=== PATIENT | female | born 1995 | race Caucasian/White ===

== ENCOUNTER 2019-03-31 06:59 | Emergency (ER) | payer MEDICAID, SELFPAY ==
[2019-03-12 13:41] VITALS: BMI 32.8
[2019-03-31 07:00] VITALS: BP 124/65; PULSE 100; RESP 16; TEMP 36.8; O2SAT 97; BMI 38.7
--- NOTE | 2019-03-31 07:10 | ED.VISSUMM ---
- ER Visit Summary Date of Service: 03/31/19 Chief Complaint: Foot pain History of Present Illness: The patient is a 23 F who presents the emergency department for evaluation of a left foot pain. Patient states that about a week ago she stepped on something causing a laceration in between the toes of #4 and 5 on the left. She notes pain and swelling now. She is also . Physical Examination: Afebrile vital signs stable On the bilateral feet and the interspaces between the toes there is moist white exudate with erythematous skin/skin breakdown. The left fifth toe is swollen erythematous and warm. There is a black foreign body in the exudate between the fourth and fifth toe on the left. Test Results: Accu-Chek was obtained. It was normal at 91. Emergency Department Course and Treatment: The black foreign body was removed with a Q-tip. Patient has bilateral tinea pedis. We will prescribe clotrimazole. For the cellulitis of the toe we will also prescribe Keflex. I have asked that she follow-up with podiatry to ensure resolution. Impression: 1. Bilateral tinea pedis 2. Cellulitis of the fifth toe on the left 3. This note was generated with [employer] dictation software. It may contain incorrect words, spelling, and punctuation that were not noted in review of the chart prior to signing ED Disposition - Plan for ED Patient: Disposition: Home or Assisted Living Instructions: Cellulitis, Athlete'S Foot Prescriptions: Cephalexin [Keflex] 500 mg PO Q6 #28 cap Prescription Printed Clotrimazole [Lotrimin] 1 applicatio TOPICAL BID #60 g Prescription Printed Referrals: David Navarro DPM [STAFF PHYSICIAN] - As soon as possible
[2019-03-31 07:25] LABS: Bedside Glucose 91 mg/dL (70-110)
== END 2019-03-31 07:36 | disposition home or self-care (01) ==
LOC: ED 07:28
PROVIDERS: Emergency Provider Emergency Medicine
DX: O99.89 Other specified diseases and conditions complicating pregnancy, childbirth and the puerperium (principal); B35.3 Tinea pedis; L03.032 Cellulitis of left toe; Z3A.00 Weeks of gestation of pregnancy not specified
CPT/HCPCS: 82962; 99282

== ENCOUNTER 2019-04-05 15:33 | Emergency (ER) | payer MEDICAID, SELFPAY ==
[2019-03-31 18:22] VITALS: BMI 38.7
[2019-04-05 15:34] VITALS: BP 150/80; PULSE 111; RESP 16; TEMP 37.1; O2SAT 98; BMI 38.7
--- NOTE | 2019-04-05 15:45 | ED.DCSUM_ITS ---
History of Present Illness Chief Complaint: Nausea/Vomiting Informant: Patient Onset: Today Context: Onset - awoke w/ mild headache Timing: Continuous Quality: Similar Prior Headaches, Throbbing Location: left frontal/retroorbital Current Severity: Severe Maximum Severity: Severe - but not the worst ever Worsened by: light Relieved by: nothing; tried tylenol and zofran but not staying down Associated Symptoms: Nausea, Vomiting, Photophobia. Negative for: Numbness, Ti ngling, Blurred Vision, Visual Loss Injury: - - no injury/trauma/assault/fall Narrative: Patient with a history of migraines, she states she is 14 weeks and has been having morning sickness for which she is taking Zofran, today she awoke with a mild migraine and vomiting that she thought was the morning sickness but as she continued vomiting and her headache became worse gradually and now she cannot stop vomiting or keep any medication down. She states that headache is very similar to multiple prior migraines in the past and she has had no lapses in consciousness today, fevers, neck stiffness, peripheral neurologic symptoms, confusion. She denies any lower abdominal discomfort, vaginal bleeding or discharge or leakage, she has not been feeling the baby move yet. Prior similar symptoms: Yes - Past Medical History (1) Migraines Status: Chronic Past Medical History - Allergies and Home Meds Allergies/Adverse Reactions: Allergies No Known Allergies Allergy (Verified 04/05/19 15:35) Primary Care Physician: Care Physician,No Primary [Primary Care Provider] - Lives: Spouse/ Significant Other Smoking Status: Never smoker Drugs: None Review of Systems General: Reports: Malaise. Denies: Chills, Fever Eyes: Denies: Visual changes - bilaterally, Blurred Vision - bilaterally, Diplopia ENT: Denies: Bilateral ear pain, Rhinorrhea, Sore throat Cardiovascular: Denies: Chest pain, Palpitations Respiratory: Denies: Dyspnea, Cough, Dyspnea on exertion Gastrointestinal: Reports: Nausea, Vomiting. Denies: Abdominal pain Genitourinary: Reports: Frequency. Denies: Dysuria, Hematuria Musculoskeletal: Denies: Neck pain, Back pain, Swelling Skin: Denies: Rash, Wounds Neurological: Reports: Headache. Denies: Weakness, Parasthesia, Numbness Physical Exam Vital Signs/Narrative: Vital Signs Temp Pulse Resp BP Pulse Ox 04/05/19 15:34 98.7 F 111 H 16 150/80 H 98 Inital Vital Signs reviewed: Yes General: Well nourished, Well developed, Obese, - - nad, pleasant, conversive Eyes: Perrl - w/ mild photophobia, EOMI ENT: Moist mucous membranes, No rhinorrhea Neck: Supple, No Lymphadenopathy, Nontender, No Meningismus Cardiovascular: Regular rate, Regular rhythm, No murmurs Respiratory: No distress, CTA bilaterally, Chest nontender Abdomen: Soft, Nontender, Nondistended, Normal bowel sounds Skin: Normal color, No rash, No Trauma Neuro: Alert, Oriented x3, Cranial nerves II-XII grossly intact, Normal Strength, Normal Sensation, Normal DTR, Normal Gait Psychological: Normal affect, Normal Mood Diagnostic/Tx/Re-eval - Medical Decision Making Patient was treated with IV fluids and Reglan, her headache was mostly gone but she still felt a little nauseated. She was then given Zofran and feels much better. I think this sounds like a standard migraine for her, no imaging indicated at this time, routine follow-up or return if worse. She is comfortable with that plan. I gave her a prescription for a few Reglan because she needs them. ED Disposition - Plan for ED Patient: Disposition: Home or Assisted Living Diagnosis: Migraine headache, First trimester Instructions: ED, Migraine (Classical) Prescriptions: Metoclopramide [Reglan] 1 tab PO Q6H PRN #12 tab PRN Reason: Headache or nausea Prescription Printed Referrals: Doctor,Your [STAFF PHYSICIAN] - 3-5 Days if not improving Additional Instructions: May take the prescribed Reglan as needed for either nausea or headache. If you take it, do not combine with Phenergan as they are in the same class.
[2019-04-05] MEDS: Metoclopramide 10 MG/2 ML Vial IV (16:03)
[2019-04-05] MEDS: 0.9% Normal Saline 1,000 ML 999 ML IV (16:03)
[2019-04-05] MEDS: Ondansetron 4 MG/2 ML Vial IV (16:50)
[2019-04-05 17:34] VITALS: BP 106/77; PULSE 81; RESP 15; O2SAT 98
== END 2019-04-05 17:37 | disposition home or self-care (01) ==
PROVIDERS: Emergency Provider Emergency Medicine
DX: O99.352 Diseases of the nervous system complicating pregnancy, second trimester (principal); G43.909 Migraine, unspecified, not intractable, without status migrainosus; O21.0 Mild hyperemesis gravidarum; O99.212 Obesity complicating pregnancy, second trimester; E66.9 Obesity, unspecified; Z3A.14 14 weeks gestation of pregnancy
CPT/HCPCS: 96374; 96375; 99283; J7030; A4216; J2405

== ENCOUNTER 2019-06-14 01:22 | Emergency (ER) | payer MEDICAID, SELFPAY ==
[2019-06-14 01:23] VITALS: BP 125/77; PULSE 95; RESP 16; TEMP 36.8; O2SAT 100; BMI 39.4
[2019-06-14 01:35] VITALS: BP 121/69; PULSE 94; RESP 16; O2SAT 99
[2019-06-14] MEDS: Glucagon 1 MG/ML Syringe IV (03:17)
--- NOTE | 2019-06-14 03:27 | ED.DCSUM_ITS ---
- ER Visit Summary Date of Service: 06/14/19 Chief Complaint: Sore throat and difficulty swallowing History of Present Illness: The patient is a 23 F who presents with a sore throat and difficulty swallowing that began tonight. Patient states she had an episode of vomiting and felt like something is stuck in her throat. Patient states this is worse when she lays flat. Patient states she has had increased drooling when she lays flat. Patient denies any shortness of breath. Patient admits to a cough but states she is recently diagnosed with pneumonia and is currently on antibiotics for that. Patient also states she is approximately 25 weeks . Physical Examination: Vital signs are stable. Patient is afebrile. Patient is in no acute distress. Oral mucosa is pink and moist. Oropharynx is clear. There are no foreign bodies visualized in the oropharynx. Neck is supple. Trachea is midline. There is no JVD noted. Heart was regular rate and rhythm. Lungs are clear and equal bilaterally. Abdomen is soft. Bowel sounds are normal. There is no tenderness. Cranial nerves II through XII are intact. There are no focal motor or sensory deficits noted. Emergency Department Course and Treatment: Patient was given a dose of glucagon here. Patient had some emesis after this. Patient still felt like there is something in her throat. Patient was given a GI cocktail. Patient was able to swallow this and keep it down. I do not feel the patient needs emergency endoscopy. Patient was instructed to continue taking Tums or Mylanta as needed. Patient was referred to a primary care physician for follow-up care. Patient was also instructed to follow-up with her TISSUE COORDINATOR. Patient understood and was agreeable with the plan. All questions were answered. Disposition: Discharge home Impression: Dysphagia This note was generated with [employer] dictation software. It may contain incorrect words, spelling, and punctuation that were not noted in review of the chart prio r to signing ED Disposition - Plan for ED Patient: Disposition: Home or Assisted Living Diagnosis: Dysphagia Instructions: VOMITING (6y-Adult) Referrals: Care Physician,No Primary [Primary Care Provider] - Giovani Sandy MD [NON-STAFF] - 5-7 Days
[2019-06-14] MEDS: Mag Hydrox/Al Hydrox/Simeth 30 ML UDC PO (04:24)
[2019-06-14 04:58] VITALS: BP 120/65; PULSE 90; RESP 16; O2SAT 99
== END 2019-06-14 05:04 | disposition home or self-care (01) ==
PROVIDERS: Emergency Provider Emergency Medicine
DX: O99.89 Other specified diseases and conditions complicating pregnancy, childbirth and the puerperium (principal); R13.10 Dysphagia, unspecified; Z3A.25 25 weeks gestation of pregnancy
CPT/HCPCS: 99282; A4216; J1610

== ENCOUNTER 2019-08-23 22:03 | Emergency (ER) | payer MEDICAID, SELFPAY ==
[2019-08-23 22:04] VITALS: BP 136/78; PULSE 98; RESP 18; TEMP 36.7; O2SAT 99; BMI 41.8
--- NOTE | 2019-08-23 22:34 | ED.VIS.GEN ---
History of Present Illness Chief Complaint: Lower Extremity Injury Narrative: Patient is a 24-year-old female who presents with intermittent left thigh pain. This began earlier today. She complains of sharp pain in the left medial thigh. She actually does not have any pain currently. She has not noticed any redness or swelling. It was tender to touch earlier but is not now. She was concerned for possible DVT. She is 35 weeks . She spoke to obstetrics on-call who advised that she be evaluated here in the emergency department. She otherwise is without complaint. No chest pain or shortness of breath. No abdominal pain pelvic cramping vaginal bleeding or loss of fluids. She continues to have movement. Past Medical History - Allergies and Home Meds Allergies/Adverse Reactions: Allergies No Known Allergies Allergy (Verified 08/23/19 22:06) Primary Care Physician: Care Physician,No Primary [Primary Care Provider] - Past Medical History: None Smoking Status: Never smoker Review of Systems All systems negative except as indicated General: Denies: Fever Cardiovascular: Denies: Chest pain Respiratory: Denies: Dyspnea Gastrointestinal: Denies: Abdominal pain, Nausea, Vomiting Genitourinary: Denies: Dysuria Musculoskeletal: Reports: - - Left thigh pain Physical Exam Vital Signs/Narrative: Vital Signs Temp Pulse Resp BP Pulse Ox 08/23/19 22:04 98.1 F 98 18 136/78 H 99 Inital Vital Signs reviewed: Yes General: Well nourished Head: Normocephalic Eyes: Negative for: EOMI ENT: Moist mucous membranes Neck: Supple Cardiovascular: Regular rate, Regular rhythm Respiratory: No distress, CTA bilaterally Abdomen: Soft, Nontender Extremities: Nontender, No edema, - - No erythema Skin: Normal color Neurological: Alert Psychological: Normal affect Diagnostic/Tx/Re-eval - Medical Decision Making At this time patient has a normal exam and currently has no pain. Venous duplex of the left lower extremity is negative, no DVT. Patient was reassured. I suspect this is muscular in etiology. She was advised on supportive care such as Tylenol for pain and was discharged home. ED Disposition - Plan for ED Patient: Disposition: Home or Assisted Living Diagnosis: Thigh pain Instructions: MUSCLE STRAIN, Extremity Referrals: Care Physician,No Primary [Primary Care Provider] -
--- NOTE | 2019-08-23 22:43 | US_ITS ---
STUDY: VENOUS DOPPLER ULTRASOUND - LEFT LOWER EXTREMITY REASON FOR EXAM: Female, 24 years old. Left thigh pain. TECHNIQUE: Ultrasound evaluation of the deep vein system to include mann-scale imaging and compression was performed. Mann-scale imaging and Doppler sonographic evaluation, including duplex spectral analysis and qualitative color flow sonography, was performed. COMPARISON: None. FINDINGS: Common Femoral Vein: Normal compression, spontaneity and augmentation. Normal color Doppler. Common Femoral Vein/Greater Saphenous Junction: Normal compression, spontaneity and augmentation. Normal color Doppler. Femoral Proximal: Normal compression, spontaneity and augmentation. Normal color Doppler. Femoral Middle: Normal compression, spontaneity and augmentation. Normal color Doppler. Femoral Distal: Normal compression, spontaneity and augmentation. Normal color Doppler. Popliteal Vein: Normal compression, spontaneity and augmentation. Normal color Doppler. Posterior Tibial Vein: Normal compression, spontaneity and augmentation. Normal color Doppler. Peroneal Vein: Normal compression, spontaneity and augmentation. Normal color Doppler. US/Venous Duplex Imag/Limited/Uni IMPRESSION: Negative for DVT in the left lower extremity. Electronically Signed: Jose Tolentino, at 23:23 EST Tel , Service support ,
[2019-08-24 00:03] VITALS: BP 113/67; PULSE 71; RESP 15; O2SAT 98
== END 2019-08-24 00:05 | disposition home or self-care (01) ==
PROVIDERS: Emergency Provider Emergency Medicine
DX: O99.89 Other specified diseases and conditions complicating pregnancy, childbirth and the puerperium (principal); M79.652 Pain in left thigh; Z3A.35 35 weeks gestation of pregnancy
CPT/HCPCS: 93971; 99282

== ENCOUNTER 2019-09-27 05:40 | Inpatient (IN) | payer BC, MEDICAID, SELFPAY ==
[2019-09-27 06:25] VITALS: BMI 42.3
[2019-09-27] MEDS: Lactated Ringers 1,000 ML 50 ML IV (06:30)
[2019-09-27 06:52] LABS: ROM Internal Control Test YES-OK TO RESULT pt. (Internal QC)
[2019-09-27 06:53] LABS: ROM Patient Test POSITIVE (Negative)
[2019-09-27 06:57] LABS: Absolute Lymphocyte Count 1.98 X10^3/uL (0.83-4.51); Absolute Neutrophil Count 8.9 X10^3/uL (2.0-7.7); Basophil# 0.04 X10^3/uL; Basophil% 0.3 % (0-1); Eosinophil# 0.08 X10^3/uL; Eosinophils% 0.7 % (0-5); Hematocrit 37.7 % (37-47); Hemoglobin 12.6 g/dL (12.0-15.0); Lymphocyte # 1.98 X10^3/ul (4.0); Mean Corp Hgb Conc 33.4 g/dL (32-36); Mean Corpuscular Hgb 29.6 pg (27.0-32.0); Mean Corpuscular Volume 88.7 fL (81-99); Monocyte# 0.55 X10^3/uL; Monocyte% 4.7 % (0-10); NRBC Flagged by Analyzer 0 % (0-5); Neutrophil % 76.7 % (47-70); Platelet Count 263 K/mm3 (150-450); RBC Distribution Width CV 12.9 % (11.6-14.6); RBC Distribution Width SD 41.3 fl (35.1-43.9); Red Blood Count 4.25 M/mm3 (4.2-5.4); White Blood Count 11.6 K/mm3 (4.4-11.0)
[2019-09-27] MEDS: Oxytocin 30 units/NS 500 ml 30 UNITS/500 ML IV.SOLN IV (08:16)
[2019-09-27] MEDS: Ondansetron 4 MG/2 ML Vial IV ×3 (09:55→20:33)
[2019-09-27] MEDS: Lactated Ringers 500 ML 999 ML IV ×3 (12:41→15:50)
--- NOTE | 2019-09-27 12:46 | PCM.HP.OB ---
History Date of Admission: 09/27/19 Final RAYMON: 09/30/19 Final RAYMON Source: US <20 weeks Gestational age: 39 Weeks and 4 Days History of this : This is a 24 year-old, 1 para 0 at 39-4/7 weeks gestation presents complaining of spontaneous rupture membranes at 4:30 AM. She arrived to labor and delivery and was found to be ruptured grossly with meconium-stained fluid. She had no vaginal bleeding. She is not had any regular contractions. was complicated to date by nausea and vomiting of . Medical history: Maternal obesity with BMI greater than 40, migraine headaches, Surgical history significant for removal of adenoids and tubes placed in her ears Allergies No Known Allergies Allergy (Verified 09/27/19 08:06) Home Medications: Home Medications Ondansetron [Zofran Odt] 4 mg PO Q8H PRN PRN 04/05/19 Pnv No.95/Ferrous Fum/Folic AC [ Formula] 1 ea PO DAILY 04/05/19 Smoking Status: Never smoker Alcohol: None Number of Fetus(es): 1 NST - FHR Rate Baby A Baseline: normal Variability:: Moderate Accelerations:: 15 x 15 NST Reactive:: Yes, Appropriate for gestational age FHR Category:: Category I Uterine Activity:: no regular ctxs upon admission History Past Pregnancies: Past Pregnancies Delivery Date Name GA/ Weeks Outcome Route Wt Sex Labor Length Anesthesia Delivery Location Provider FOB Expected Infant Delivery Method: Spontaneous Vaginal Review of Systems Constitutional: Denies: Anorexia, Chills, Fever Eyes: Denies: Blurred vision, Double vision Cardiovascular: Denies: Chest Pain Respiratory: Denies: Cough Neurological: Denies: Blurred vision, Change in Speech, Slurred speech, Confusion Endocrine: Denies: Polydipsia Physical Exam General: Alert, Cooperative, No apparent distress Cardiovascular: Regular rate Lungs: Normal air movement Abdomen: Soft, Non Tender, Non-Distended, Gravid Extremities:: Other - edema- 1+ Neurological: Cranial nerves II-XII grossly intact. Negative for: Slurred Speech, Unsteady Gait OUTPATIENT PHLEBOTOMIST: Normal external genitalia Estimated gestational size: Appropriate for gestational size Presentation: Cephalic Cervix Dilation (cm): 1 Station: -2 Effacement (%): 70 Assessment/Plan All Active Problems (Last Reviewed 03/31/19 @ 13:12 by Mikaela Rojas) Pharyngitis, acute (Acute) This is a 24 year-old, 1 para 0 at 39-4/7 weeks gestation with spontaneous rupture of membranes. Premature rupture of membranes. Start Pitocin for labor induction. Risk benefits and alternatives to induction been discussed with the patient, her questions were answered to her satisfaction she desires to proceed. scalp electrode and IUPC were placed due to difficulty monitoring the fetus with external monitoring. May weight is approximately 4500 g, pelvis clinically adequate to expect vaginal delivery. Group B strep prophylaxis is initiated.
[2019-09-27] MEDS: Lactated Ringers 1,000 ML 200 ML IV ×2 (13:14→19:50)
[2019-09-27] MEDS: fentaNYL-bupivacaine (epidural) 100 ML BAG EPIDURAL ×2 (13:55→19:49)
[2019-09-27] MEDS: proCHLORPERazine 10 MG/2 ML Vial IV (15:13)
[2019-09-27] MEDS: ePHEDrine Sulfate 50 MG/ML Ampul 10 MG IV (15:45)
[2019-09-27] MEDS: Amnioinfusion- 0.9% NS 1,000 ML IV.SOLN. 200 ML INTRA-UTER (15:49)
[2019-09-27] MEDS: 0.9% Saline Lock 10 ML Syringe IV (20:37)
[2019-09-28] VITALS (22 sets, daily range): BP systolic 116–140; BP diastolic 61–82; PULSE 88–115; RESP 18–20; TEMP 35.9–37.6; O2SAT 96–99
[2019-09-28] MEDS: Lactated Ringers 1,000 ML 200 ML IV (00:57)
[2019-09-28] MEDS: fentaNYL-bupivacaine (epidural) 100 ML BAG EPIDURAL (01:40)
[2019-09-28] MEDS: Ketorolac 30 MG/ML Syringe IV ×3 (03:30→15:20)
[2019-09-28] MEDS: Oxytocin 30 units/NS 500 ml 30 UNITS/500 ML IV.SOLN 167 UNITS IV (04:06)
--- NOTE | 2019-09-28 04:16 | PCM.OPRPT ---
Delivery Classification: Stat Final RAYMON: 09/30/19 Final RAYMON Source: US <20 weeks Gestational age: 39 Weeks and 5 Days casting chipper: Lexi Riuz Type of Anesthesia:: Spinal Special Medications: none Implants Used: none Date of Procedure: 09/28/19 Pre-Operative Diagnosis: labor, prolonged deceleration Post-Operative Diagnosis: same Indications for : - - prolonged deceleration Description of Procedure: Nursing staff called me to notify me the patient was having a prolonged deceleration, and they were to transport her to the room and call in OB ERT. I agreed with this and agreed to be on my way. Arrived to labor and delivery and the patient was prepped and in the operating room. I arrived, I scrubbed quickly and the patient was draped. A Pfannenstiel skin incision was made approximately 2 cm above the symphysis pubis and carried through to underlying layer fascia with the scalpel. The fascia was incised incised in the midline and extended laterally with the Cherry scissors. The fascia was dissected off the rectus muscles with blunt and sharp dissection. The rectus muscles were in the midline and the peritoneum was entered bluntly. The peritoneal incision was stretched and the bladder blade was placed. The uterine incision was made in a low transverse fashion with the scalpel and extended superiorly and inferiorly with blunt dissection. It was very tight narrow pelvis trying to get my hand down under the scalp. I therefore reached up to the fundus and was able to bring both feet to the incision. I brought the legs out to the buttocks, then turned the baby to back up and delivered the shoulders. I was then able to deliver the head in the flexed position. The infant's head was brought to the incision in the flexed position and delivered without difficulty. The remainder of the was delivered with gentle traction and fundal pressure in the standard fashion. The mouth and nares were bulb suctioned. The cord was clamped and cut immediately as the infant was limp. The was handed off to the waiting nursing staff. The placenta was delivered with fundal massage and gentle traction in the standard fashion. The uterus was exteriorized and cleared of all clots and debris. The uterine incision was closed with #1 Vicryl in a running locked fashion. A second layer of the same suture was used in an imbricating fashion. Several niviie-ex-neszy sutures were placed to obtain hemostasis. Erick was placed over the incision and pressure was held. The incision was examined and was found to be hemostatic. The uterus was placed back into the peritoneal cavity and hemostasis was again confirmed. The rectus muscles were examined and any bleeding was Bovie cauterized. The parietal peritoneum and rectus muscles were closed en bloc with an 0 Vicryl running suture. The surgical teams outer gloves were then changed. The rectus fascia was examined and any bleeding was Bovie cauterized and the rectus fascia was closed with #1 PDS suture in a running standard fashion. The subcutaneous tissue was examining and any bleeding was Bovie cauterized. The subcutaneous tissue was reapproximated with 3-0 Vicryl suture. The skin was closed in a subcuticular fashion with 3-0 Monocryl. I performed the entire procedure with assistance. All sponge, lap, and needle counts were correct. The patient was taken to her room for recovery in a stable condition. Amniotic Fluid Description: Lightly stained meconium Placenta Disposition: Sent with transport team Drain: Henry to straight drain Cord Entanglement: Around neck x 2, loose Nuchal Cord Compression: With compression Cord Vessel Description: 3 Vessels Esitmated Blood Loss (ml): 1000 Infant Gender: Male Delayed cord clamping: No - Admit VTE Documentation VTE Present on Admission: No VTE Mechan Device Prophylaxis: SCD's VTE Pharm Prophylaxis ordered?: Yes
--- NOTE | 2019-09-28 06:00 | NURSING ---
Pump supplies brought to pt room. Pt pumping at this time.
--- NOTE | 2019-09-28 07:09 | NURSING ---
Epidural catheter removed, blue tip intact.
[2019-09-28] MEDS: Lactated Ringers 1,000 ML 100 ML IV ×3 (07:14→23:37)
--- NOTE | 2019-09-28 08:12 | NURSING ---
pt has indwelling catheter as pt is s/p c/s
--- NOTE | 2019-09-28 08:16 | NURSING ---
pt semi-fowlers in bed with fan blowing on face
--- NOTE | 2019-09-28 08:55 | PN.OBGYN_ITS ---
Subjective: pain well controlled, average lochia - Physical Exam Vitals/I&O's: Vital Signs Temp Pulse Resp BP Pulse Ox 97.3 F L 100 20 H 124/76 H 96 09/28/19 08:05 09/28/19 08:05 09/28/19 08:05 09/28/19 08:05 09/28/19 08:05 Oxygen Delivery Method Room Air Weight: 118.75 kg Body Mass Index (BMI) 42.3 Finger Stick Blood Glucose 91 Intake and Output for Last 24 Hours 09/26/19 09/27/19 09/28/19 23:59 23:59 23:59 Intake Total 3975.07 / 3975.07 4576.53 / 4576.53 Output Total 1225 / 1225 1600 / 1600 Balance 2750.07 / 2750.07 2976.53 / 2976.53 General: Alert, Cooperative, No apparent distress Abdomen: Soft, Gravid, Obese, Tender - appropriately Extremities: Edema - 1+ Skin: Incision - bandage is clean, dry and intact Laboratory Results 09/27/19 06:30: Blood Type A POSITIVE, Antibody Screen NEGATIVE Current Medications Acetaminophen (Tylenol) 1,000 mg PO Q8H PRN PRN Reason: Pain Score 1-3/10 Bisacodyl (Dulcolax) 10 mg RECTAL UD PRN PRN Reason: If no BM Docusate Sodium (Colace) 100 mg PO BID ANGELIC Enoxaparin Sodium (Lovenox) 40 mg SC BID ANGELIC Hydrocortisone (Hytone) 1 applic TOPICAL TID PRN PRN; Protocol PRN Reason: Discomfort Lactated Ringer's () 1,000 mls @ 100 mls/hr IV .Q10H [facility] Last Admin: 09/28/19 07:14 Dose: 100 mls/hr Documented by: Naloxone HCl 4 mg/ Dextrose 504 mls @ 0 mls/hr IV .Q0M PRN; Protocol PRN Reason: Respiratory depression Cefazolin Sodium () 1 gm in 50 mls @ 150 mls/hr IV Q8H [facility] Stop: 09/28/19 17:49 Ketorolac Tromethamine (Toradol) 30 mg IV Q6H [facility] Stop: 09/30/19 03:01 Last Admin: 09/28/19 03:30 Dose: 30 mg Documented by: Methylergonovine Maleate (Methergine) 0.2 mg IM X1 PRN PRN Reason: Uterine Atony Naloxone HCl (Narcan) 0.02 mg IV Q1M PRN PRN Reason: RR <10 and pt unresponsive Naproxen (Naprosyn) 250 - 500 mg PO Q8H PRN PRN PRN Reason: Pain Score 1-3/10 Ondansetron HCl (Zofran) 4 mg IV Q4H PRN PRN PRN Reason: Nausea Oxycodone HCl (Oxyir) 5 - 10 mg PO Q4H PRN PRN PRN Reason: Pain Score 4-10/10 Prochlorperazine Edisylate (Compazine Iv) 10 mg IV Q6H PRN PRN PRN Reason: NAUSEA Senna/Docusate Sodium (Senokot-S, Candace-Colace) 1 tablet PO BID ANGELIC Simethicone (Mylicon) 80 mg PO PCHS PRN PRN Reason: Indigestion/stomach pain Sodium Chloride () 5 - 15 ml IV UD PRN PRN Reason: SALINE FLUSH Medical Necessity - Tobacco Use Smoking Status: Never smoker Assessment/Plan All Active Problems (Last Reviewed 03/31/19 @ 13:12 by Mikaela Rojas) Pharyngitis, acute (Acute)
[2019-09-28] MEDS: Cefazolin 1 GM/50 ML BAG IV ×2 (09:42→17:28)
[2019-09-28] MEDS: 0.9% Saline Lock 10 ML Syringe IV (09:43)
[2019-09-28] MEDS: Senna/Docusate Sodium 1 Tablet PO ×2 (09:49→21:47)
--- NOTE | 2019-09-28 11:14 | NURSING ---
IBCLC round on mother today at 10am. Mother had already pumped once since delivery. We reviewed use of breast pump, hand expression and hands on pumping. Mother indicated understanding and was able to collect a swab on container of breastmilk of her baby.
--- NOTE | 2019-09-28 16:31 | NURSING ---
Addendum entered by Simin Jeong 09/28/19 16:32: Dr. Gayle to call back for RN request for fluid bolus. Original Note: RN spoke with Brandy nurse, at [facility] office about pt output, 100mL in 3 hrs.
--- NOTE | 2019-09-28 16:47 | CASEMGMT ---
Social Work Brief Assessment Labor and Delivery Unit Patient Address: [address] [place] [id number] Phone number: [phone] Date of Referral/Notification: 09.28.2019 Time of Referral: 829 Referred By: social work identification Reason for Referral: OB-ERT Date of Intervention: 09.28.2019 Time of Intervention: 1430 Informant: Medical record and mother of baby (MOB) Radha Zarco; MOB's sister Breanna also present History: MOB is a 24 year old single female, who delivered baby desiree Quintana on 09.28.2019 after OB-ERT was called and emergency Caesarian section followed. MOB is G1, P0 to 1 after delivering infant who was a term delivery. care was good and started at 7 weeks gestation. Baby Mariano weighed 7 pounds 12 ounces at . Apgars 2-5-9 at 1-5-10 minutes of life respectively. Baby was stabilized and transferred to [facility] NICU for respiratory distress. Father of baby (FOB) is Baljinder Stewart, also age 23. BROOKE and FOB live together and moved into FOB's grandfather's home to help out. No issue reported with home situation. BROOKE reports to work as a CIO for [employer]. FOB works for [employer] and is a student. MOB has medicaid and WIC. No reports of prior mental health issues for MOB, nor any history of substance use. PNC record indicate MOB's parents with history of alcohol use issues. MOB reports to have a good support system from FOB, MOB' mom Arturo, FOB' mom Ekta, and MOB's sister Breanna. Assessment: MOB alert, cooperative, pleasant and engaging with social work visit today. MOB smiled and had appropriate affect. MOB showed this technical report writer the [employer] phone john that allows MOB to see baby Mariano on video cam. MOB reports overall to feel that she is doing okay right now, just sore. MOB reports the plan is for FOLeah to stay up at [place] with the baby, as MOB has support from family right now. MOB reports to feel she has a good support system in place. This technical report writer let MOB know that staff is here to support her as able, and that this will technical report writer will return to see MOB again tomorrow and provide some information on community resources and also talk about depression and anxiety. MOB voices agreement. Plan: Social work to follow and assist as needed. Plan to see MOB again for support and also provide resources for home going. -SHAUNA Ramos, DATA SME
[2019-09-28] MEDS: Enoxaparin 40 MG/0.4 ML Syringe SC ×2 (17:28→23:37)
[2019-09-28] MEDS: Lactated Ringers 500 ML 999 ML IV (17:29)
[2019-09-28] MEDS: Acetaminophen 500 MG Tablet 1000 MG PO (21:06)
[2019-09-28] MEDS: Ketorolac 15 MG/ML Vial 30 MG IV (21:47)
[2019-09-29] VITALS (7 sets, daily range): BP systolic 129–136; BP diastolic 64–74; PULSE 70–120; RESP 16–18; TEMP 36.4–37.3; O2SAT 96–100
[2019-09-29] MEDS: Ketorolac 15 MG/ML Vial 30 MG IV ×3 (03:02→15:32)
[2019-09-29] MEDS: oxyCODONE 5 MG Tablet PO ×3 (04:05→19:18)
[2019-09-29] MEDS: 0.9% Saline Lock 10 ML Syringe IV ×3 (04:05→15:32)
[2019-09-29 04:35] LABS: Hematocrit 28.6 % (37-47); Hemoglobin 9.4 g/dL (12.0-15.0); Mean Corp Hgb Conc 32.9 g/dL (32-36); Mean Corpuscular Hgb 29.3 pg (27.0-32.0); Mean Corpuscular Volume 89.1 fL (81-99); Mean Platelet Vol. 9.9 fl (6.2-12.0); Platelet Count 194 K/mm3 (150-450); RBC Distribution Width CV 13.2 % (11.6-14.6); RBC Distribution Width SD 43.7 fl (35.1-43.9); Red Blood Count 3.21 M/mm3 (4.2-5.4); White Blood Count 15.6 K/mm3 (4.4-11.0)
--- NOTE | 2019-09-29 06:44 | NURSING ---
reviewed Adelita Casey rn charting.
[2019-09-29] MEDS: Enoxaparin 40 MG/0.4 ML Syringe SC ×2 (09:29→21:57)
[2019-09-29] MEDS: Senna/Docusate Sodium 1 Tablet PO ×2 (09:29→21:33)
--- NOTE | 2019-09-29 16:11 | PN.OBGYN_ITS ---
Subjective: pain well controlled, average lochia. No CP/SOB. Mary. regular diet. Ambulating in hallways - Physical Exam Vitals/I&O's: Vital Signs Temp Pulse Resp BP Pulse Ox 98.6 F 120 H 16 131/71 H 99 09/29/19 08:05 09/29/19 08:05 09/29/19 08:05 09/29/19 08:05 09/29/19 03:05 Oxygen Delivery Method Room Air Weight: 118.75 kg Body Mass Index (BMI) 42.3 Finger Stick Blood Glucose 91 Intake and Output for Last 24 Hours 09/27/19 09/28/19 09/29/19 23:59 23:59 23:59 Intake Total 3975.07 / 3975.07 7338.20 / 7338.20 686.67 / 686.67 Output Total 1225 / 1225 2600 / 2600 2049 / 2049 Balance 2750.07 / 2750.07 4738.20 / 4738.20 -1363.33 / -1363.33 General: Alert, Cooperative, No apparent distress Abdomen: Soft, Non-Distended, Tender - appropriately Extremities: Edema - 1+ Skin: Incision - bandage clean, dry and intact Laboratory Results 09/29/19 04:20: WBC 15.6 H, RBC 3.21 L, Hgb 9.4 L, Hct 28.6 L, MCV 89.1, MCH 29.3, MCHC 32.9, RDW Std Deviation 43.7, RDW Coeff of Kia 13.2, Plt Count 194, MPV 9.9 Current Medications Acetaminophen (Tylenol) 1,000 mg PO Q8H PRN PRN Reason: Pain Score 1-3/10 Last Admin: 09/28/19 21:06 Dose: 1,000 mg Documented by: Bisacodyl (Dulcolax) 10 mg RECTAL UD PRN PRN Reason: If no BM Docusate Sodium (Colace) 100 mg PO BID [facility] Last Admin: 09/29/19 09:44 Dose: Not Given Documented by: Enoxaparin Sodium (Lovenox) 40 mg SC BID [facility] Last Admin: 09/29/19 09:29 Dose: 40 mg Documented by: Hydrocortisone (Hytone) 1 applic TOPICAL TID PRN PRN; Protocol PRN Reason: Discomfort Naloxone HCl 4 mg/ Dextrose 504 mls @ 0 mls/hr IV .Q0M PRN; Protocol PRN Reason: Respiratory depression Ketorolac Tromethamine (Toradol) 30 mg IV Q6H [facility] Stop: 09/29/19 21:01 Last Admin: 09/29/19 15:32 Dose: 30 mg Documented by: Methylergonovine Maleate (Methergine) 0.2 mg IM X1 PRN PRN Reason: Uterine Atony Naloxone HCl (Narcan) 0.02 mg IV Q1M PRN PRN Reason: RR <10 and pt unresponsive Naproxen (Naprosyn) 250 - 500 mg PO Q8H PRN PRN PRN Reason: Pain Score 1-3/10 Ondansetron HCl (Zofran) 4 mg IV Q4H PRN PRN PRN Reason: Nausea Oxycodone HCl (Oxyir) 5 - 10 mg PO Q4H PRN PRN PRN Reason: Pain Score 4-10/10 Last Admin: 09/29/19 13:51 Dose: 5 mg Documented by: Prochlorperazine Edisylate (Compazine Iv) 10 mg IV Q6H PRN PRN PRN Reason: NAUSEA Senna/Docusate Sodium (Senokot-S, Candace-Colace) 1 tablet PO BID [facility] Last Admin: 09/29/19 09:29 Dose: 1 tablet Documented by: Simethicone (Mylicon) 80 mg PO PCHS PRN PRN Reason: Indigestion/stomach pain Last Admin: 09/29/19 13:51 Dose: 80 mg Documented by: Sodium Chloride () 5 - 15 ml IV UD PRN PRN Reason: SALINE FLUSH Last Admin: 09/29/19 15:32 Dose: 10 ml Documented by: Medical Necessity - Tobacco Use Smoking Status: Never smoker Assessment/Plan All Active Problems (Last Reviewed 03/31/19 @ 13:12 by Mikaela Rojas) Pharyngitis, acute (Acute) PPD#1 s/p primary c/s doing well, routine care infant doing well
[2019-09-30] MEDS: Naproxen 250 MG Tablet PO ×2 (00:12→09:48)
[2019-09-30 01:38] VITALS: BP 116/73; PULSE 88; RESP 20; TEMP 36.9
[2019-09-30] MEDS: oxyCODONE 5 MG Tablet PO ×2 (02:07→16:18)
[2019-09-30 07:50] VITALS: BP 132/76; PULSE 99; RESP 16; TEMP 36.8; O2SAT 97
[2019-09-30 08:20] VITALS: PULSE 101
--- NOTE | 2019-09-30 09:27 | DCINST_ITS ---
Discharge Diet: No Restrictions Discharge Activity: Return to Normal Activity, May Not Drive - for 2 weeks, May not drive while taking narcotic pain medications., May Shower, May Take a Tub Bath - in 7 days. May resume sexual activity in: 4-6 weeks Lifting Restrictions: 20 pounds Additional Activity Instructions:: Nothing in the vagina for 4-6 weeks. You may return to work/school in 6 weeks. Call your doctor if your incision/area has: Continuous Slow Oozing, Sudden Increased Bleeding, Increased Pain/ Swelling, Increased Redness, Foul Smelling Discharge Call your doctor if you observe: Fever of 101 or Higher, Using more than one pad per hour - for 2 hours Suture Line Care: Avoid Pulling/Pushing, Avoid Pinching/Bending Cleanse incision/area with: Keep Dressing Clean & Dry Additional Instructions: If you experience any of the following, contact your healthcare provider. * Bleeding that soaks a pad every hour for 2 hours * Fever 100.4 or higher * Unrelieved incision or abdominal pain * Swelling, redness, discharge or bleeding from your incision or episiotomy site * Your incision begins to separate * Problems urinating (including inability to urinate or burning while urinating). * Visual changes * Severe headache * Flu-like symptoms * Pain or redness in one of both of your breasts * Pain, warmth, tenderness or swelling in your legs, especially the calf area * Frequent nausea and vomiting * Symptoms of depression or anxiety If you experience any of the following, call 911 or go to the nearest Emergency Room. * Chest pain * Problems breathing * Seizure activity * Partial or complete paralysis of a body part, slurred speech, weakness or drooping of the face, or a sudden inability to walk or hold your balance Allergies/Adverse Reactions: Allergies No Known Allergies Allergy (Verified 09/27/19 08:06) Medications to take at Discharge Ondansetron [Zofran Odt] 4 mg PO Q8H PRN PRN 04/05/19 Pnv No.95/Ferrous Fum/Folic AC [ Formula Tablet] 1 ea PO DAILY 04/05/19 Docusate Sodium [Colace] 100 mg PO BID #30 cap 09/30/19 Ibuprofen [Motrin] 800 mg PO TID PRN PRN #60 tab 09/30/19 Oxycodone [Oxyir] 5 mg PO Q6H PRN PRN 7 Days #24 tablet 09/30/19 The following prescriptions were given: Docusate Sodium [Colace] 100 mg PO BID #30 cap Transmission Status: Pending to [facility] Ibuprofen [Motrin] 800 mg PO TID PRN PRN #60 tab PRN Reason: Pain Transmission Status: Pending to [facility] Oxycodone [Oxyir] 5 mg PO Q6H PRN PRN 7 Days #24 tablet PRN Reason: severe pain Transmission Status: Sent to [facility] Follow-Up: Call to make an appointment with your doctor for an incision check in 1-2 weeks. You will also need a 6 week post- follow up appointment. Test results from this visit will be discussed in further detail at your follow- up appointment, if applicable. Please Follow Up With: Charissa Gayle MD - Call to make an appointment for an incision check in 1-2 [phone] When: You will need a post check in 6 weeks.
--- NOTE | 2019-09-30 09:28 | PN.OBGYN_ITS ---
Subjective: pain well controlled, average lochia, some flatus, no BM. Mary. regular diet. - Physical Exam Vitals/I&O's: Vital Signs Temp Pulse Resp BP Pulse Ox 98.3 F 101 H 16 132/76 H 97 09/30/19 07:50 09/30/19 08:20 09/30/19 07:50 09/30/19 07:50 09/30/19 07:50 Oxygen Delivery Method Room Air Weight: 118.75 kg Body Mass Index (BMI) 42.3 Finger Stick Blood Glucose 91 Intake and Output for Last 24 Hours 09/28/19 09/29/19 09/30/19 23:59 23:59 23:59 Intake Total 7338.20 / 7338.20 686.67 / 686.67 Output Total 2600 / 2600 2049 / 2049 Balance 4738.20 / 4738.20 -1363.33 / -1363.33 General: Alert, Cooperative, No apparent distress Abdomen: Soft, Non-Distended, Obese, Tender - appropriately Extremities: Edema - 1+ Skin: Incision - bandage is clean, dry and intact Current Medications Acetaminophen (Tylenol) 1,000 mg PO Q8H PRN PRN Reason: Pain Score 1-3/10 Last Admin: 09/28/19 21:06 Dose: 1,000 mg Documented by: Bisacodyl (Dulcolax) 10 mg RECTAL UD PRN PRN Reason: If no BM Docusate Sodium (Colace) 100 mg PO BID [facility] Last Admin: 09/29/19 21:35 Dose: Not Given Documented by: Enoxaparin Sodium (Lovenox) 40 mg SC BID [facility] Last Admin: 09/29/19 21:57 Dose: 40 mg Documented by: Hydrocortisone (Hytone) 1 applic TOPICAL TID PRN PRN; Protocol PRN Reason: Discomfort Naloxone HCl 4 mg/ Dextrose 504 mls @ 0 mls/hr IV .Q0M PRN; Protocol PRN Reason: Respiratory depression Methylergonovine Maleate (Methergine) 0.2 mg IM X1 PRN PRN Reason: Uterine Atony Naloxone HCl (Narcan) 0.02 mg IV Q1M PRN PRN Reason: RR <10 and pt unresponsive Naproxen (Naprosyn) 250 - 500 mg PO Q8H PRN PRN PRN Reason: Pain Score 1-3/10 Last Admin: 09/30/19 00:12 Dose: 500 mg Documented by: Ondansetron HCl (Zofran) 4 mg IV Q4H PRN PRN PRN Reason: Nausea Oxycodone HCl (Oxyir) 5 - 10 mg PO Q4H PRN PRN PRN Reason: Pain Score 4-10/10 Last Admin: 09/30/19 02:07 Dose: 5 mg Documented by: Prochlorperazine Edisylate (Compazine Iv) 10 mg IV Q6H PRN PRN PRN Reason: NAUSEA Senna/Docusate Sodium (Senokot-S, Candace-Colace) 1 tablet PO BID [facility] Last Admin: 09/29/19 21:33 Dose: 1 tablet Documented by: Simethicone (Mylicon) 80 mg PO PCHS PRN PRN Reason: Indigestion/stomach pain Last Admin: 09/29/19 19:59 Dose: 80 mg Documented by: Sodium Chloride () 5 - 15 ml IV UD PRN PRN Reason: SALINE FLUSH Last Admin: 09/29/19 15:32 Dose: 10 ml Documented by: Medical Necessity - Tobacco Use Smoking Status: Never smoker Assessment/Plan All Active Problems (Last Reviewed 03/31/19 @ 13:12 by Mikaela Rojas) Pharyngitis, acute (Acute) POD#2 ready for discharge in NICU, stable at [facility]
--- NOTE | 2019-09-30 09:30 | PCM.DC.SUM ---
Discharge Date and Diagnosis Date of Admission: 09/27/19 Date of Discharge: 09/30/19 - Secondary Discharge Diagnosis Chronic Problems (Last Reviewed 03/31/19 @ 13:12 by Mikaela Rojas) Migraines (Chronic) Hospital Course and Treatment Operations: - - Primary low transverse section via Pfannenstiel skin incision with double layer closure of the uterus with #1 Vicryl suture Procedures: None Summary of Care Provided: The patient is a 24 year old female was admitted at 39+ gestational weeks with spontaneous rupture membranes. Labor was induced with Pitocin. She progressed in labor to approximately 9 cm. At that time she had a prolonged deceleration without recovery. She was transferred to the operating room where she underwent a stat section. This was performed without difficulty. It was a low transverse with a double layer uterine closure. She was given 2 doses of antibiotics postoperatively as she did not receive her preoperative antibiotics. She did receive azithromycin and Ancef after the as we were closing. Operatively, the patient did well. The was transferred to [facility]. Operative day #2 she is ambulating urinating tolerating her acute blood loss appropriate for blood loss during the surgery well. She was given routine instructions and prescriptions - Physical Exam Vitals/I&O's: Vital Signs Temp Pulse Resp BP Pulse Ox 98.3 F 101 H 16 132/76 H 97 09/30/19 07:50 09/30/19 08:20 09/30/19 07:50 09/30/19 07:50 09/30/19 07:50 Oxygen Delivery Method Room Air Weight: 118.75 kg Body Mass Index (BMI) 42.3 Finger Stick Blood Glucose 91 Intake and Output for Last 24 Hours 09/28/19 09/29/19 09/30/19 23:59 23:59 23:59 Intake Total 7338.20 / 7338.20 686.67 / 686.67 Output Total 2600 / 2600 2049 / 2049 Balance 4738.20 / 4738.20 -1363.33 / -1363.33 Current Medications Acetaminophen (Tylenol) 1,000 mg PO Q8H PRN PRN Reason: Pain Score 1-3/10 Last Admin: 09/28/19 21:06 Dose: 1,000 mg Documented by: Bisacodyl (Dulcolax) 10 mg RECTAL UD PRN PRN Reason: If no BM Docusate Sodium (Colace) 100 mg PO BID [facility] Last Admin: 09/29/19 21:35 Dose: Not Given Documented by: Enoxaparin Sodium (Lovenox) 40 mg SC BID [facility] Last Admin: 09/29/19 21:57 Dose: 40 mg Documented by: Hydrocortisone (Hytone) 1 applic TOPICAL TID PRN PRN; Protocol PRN Reason: Discomfort Naloxone HCl 4 mg/ Dextrose 504 mls @ 0 mls/hr IV .Q0M PRN; Protocol PRN Reason: Respiratory depression Methylergonovine Maleate (Methergine) 0.2 mg IM X1 PRN PRN Reason: Uterine Atony Naloxone HCl (Narcan) 0.02 mg IV Q1M PRN PRN Reason: RR <10 and pt unresponsive Naproxen (Naprosyn) 250 - 500 mg PO Q8H PRN PRN PRN Reason: Pain Score 1-3/10 Last Admin: 09/30/19 00:12 Dose: 500 mg Documented by: Ondansetron HCl (Zofran) 4 mg IV Q4H PRN PRN PRN Reason: Nausea Oxycodone HCl (Oxyir) 5 - 10 mg PO Q4H PRN PRN PRN Reason: Pain Score 4-10/10 Last Admin: 09/30/19 02:07 Dose: 5 mg Documented by: Prochlorperazine Edisylate (Compazine Iv) 10 mg IV Q6H PRN PRN PRN Reason: NAUSEA Senna/Docusate Sodium (Senokot-S, Candace-Colace) 1 tablet PO BID [facility] Last Admin: 09/29/19 21:33 Dose: 1 tablet Documented by: Simethicone (Mylicon) 80 mg PO PCHS PRN PRN Reason: Indigestion/stomach pain Last Admin: 09/29/19 19:59 Dose: 80 mg Documented by: Sodium Chloride () 5 - 15 ml IV UD PRN PRN Reason: SALINE FLUSH Last Admin: 09/29/19 15:32 Dose: 10 ml Documented by: Discharge Diet: No Restrictions Discharge Activity: Return to Normal Activity, May Not Drive - for 2 weeks, May not drive while taking narcotic pain medications., May Shower, May Take a Tub Bath - in 7 days. May resume sexual activity in: 4-6 weeks Additional Activity Instructions:: Nothing in the vagina for 4-6 weeks. You may return to work/school in 6 weeks. Call your doctor if your incision/area has: Continuous Slow Oozing, Sudden Increased Bleeding, Increased Pain/ Swelling, Increased Redness, Foul Smelling Discharge Call your doctor if you observe: Fever of 101 or Higher, Using more than one pad per hour - for 2 hours Suture Line Care: Avoid Pulling/Pushing, Avoid Pinching/Bending Cleanse incision/area with: Keep Dressing Clean & Dry Home Medications: Medications to take at Discharge Ondansetron [Zofran Odt] 4 mg PO Q8H PRN PRN 04/05/19 Pnv No.95/Ferrous Fum/Folic AC [ Formula Tablet] 1 ea PO DAILY 04/05/19 Docusate Sodium [Colace] 100 mg PO BID #30 cap 09/30/19 Ibuprofen [Motrin] 800 mg PO TID PRN PRN #60 tab 09/30/19 Oxycodone [Oxyir] 5 mg PO Q6H PRN PRN 7 Days #24 tab 09/30/19 Following Prescrptions Were Given to Patient: Docusate Sodium [Colace] 100 mg PO BID #30 cap Transmission Status: Received by [facility] Ibuprofen [Motrin] 800 mg PO TID PRN PRN #60 tab PRN Reason: Pain Transmission Status: Received by [facility] Oxycodone [Oxyir] 5 mg PO Q6H PRN PRN 7 Days #24 tab PRN Reason: severe pain Transmission Status: Received by [facility] Please Follow Up With: Charissa Gayle MD - Call to make an appointment for an incision check in 1-2 [phone] When: You will need a post check in 6 weeks. Medical Necessity - Tobacco Use Smoking Status: Never smoker Meaningful Use Info Meaningful Use Diagnoses (Choose all that apply): None applicable
[2019-09-30] MEDS: Senna/Docusate Sodium 1 Tablet PO (09:48)
--- NOTE | 2019-09-30 09:48 | NURSING ---
All medications given at 0948 and 0949 by student nurse Radha given with this RN at bedside supervising administration.
[2019-09-30] MEDS: Enoxaparin 40 MG/0.4 ML Syringe SC (09:49)
[2019-09-30 14:08] VITALS: BP 132/69; PULSE 108; RESP 16; TEMP 36.9; O2SAT 100
[2019-09-30] MEDS: Acetaminophen 500 MG Tablet 1000 MG PO (14:45)
== END 2019-09-30 17:40 | disposition home or self-care (01) | DRG 540 ==
PROVIDERS: Obstetrics & Gynecology; Admitting Provider Obstetrics & Gynecology; Visit Provider Obstetrics & Gynecology
DX: O76 Abnormality in fetal heart rate and rhythm complicating labor and delivery (principal); O42.02 Full-term premature rupture of membranes, onset of labor within 24 hours of rupture; O69.1XX0 Labor and delivery complicated by cord around neck, with compression, not applicable or unspecified; O77.0 Labor and delivery complicated by meconium in amniotic fluid; O99.214 Obesity complicating childbirth; E66.9 Obesity, unspecified; Z3A.39 39 weeks gestation of pregnancy; Z37.0 Single live birth
CPT/HCPCS: 59025; 59050; 84112; 85025; 85027; 86850; 86900; 86901; 99218; J7030; J7120; A4216; G0378; J2405

== ENCOUNTER 2019-10-15 05:00 | Emergency (ER) | payer BC, MEDICAID, SELFPAY ==
[2019-10-15 05:00] VITALS: BP 142/80; PULSE 98; RESP 19; TEMP 36.4; O2SAT 100; BMI 38.7
--- NOTE | 2019-10-15 05:08 | EKG12_ITS ---
Test Reason : SOB Blood Pressure : / mmHG Vent. Rate : 088 BPM Atrial Rate : 088 BPM P-R Int : 158 ms QRS Dur : 082 ms QT Int : 362 ms P-R-T Axes : 044 049 047 degrees QTc Int : 438 ms Normal sinus rhythm Normal ECG Confirmed by DE GOMEZ, JADIEL ([id number]), technical writer and editor MARY ESCOBAR ([id number] on 10/18/2019 10:52:35 AM Referred By: JAMIE Confirmed By:VIKKI KC MD
--- NOTE | 2019-10-15 05:10 | CT_ITS ---
STUDY: CTA CHEST REASON FOR EXAM: Female, 24 years old. Shortness of breath 2 weeks status post section. RADIATION DOSAGE (If Supplied By Facility): CTDIvol = ( 16.82 ) mGy, DLP = ( 991.24 ) mGycm TECHNIQUE: The examination was performed with the intravenous administration of Isovue 370 100ml. Post-processing of the angiographic images was performed, with MIP reconstructed images. 2 separate axial acquisitions were performed due to IV malfunction. Individualized dose optimization techniques were used for this CT. COMPARISON: None. FINDINGS: Heart and great vessels: Despite obtaining 2 separate sets of images, the pulmonary arteries are not adequately opacified on either series to exclude pulmonary embolus. Heart size normal. Normal caliber thoracic aorta. No pericardial effusion. No evidence of right heart strain. Lungs, pleura: No pneumonia, edema, or acute abnormality in the lungs. No pleural effusion. No pneumothorax. Mediastinum: No adenopathy or mass or hematoma. Osseous:No fracture or acute osseous abnormality. Chest wall: No concerning findings. Upper abdomen: No acute findings. CT/CTA Chest W/WO Contrast IMPRESSION: Despite obtaining 2 separate sets of images, the pulmonary arteries are not adequately opacified on either series to exclude pulmonary embolus. Consider either repeating the CTA Chest or obtaining VQ scan. Otherwise negative study. Electronically Signed: Jose Tolentino, at 6:02 EST Tel , Service support ,
[2019-10-15 05:21] LABS: Absolute Lymphocyte Count 2.22 X10^3/uL (0.83-4.51); Absolute Neutrophil Count 6.8 X10^3/uL (2.0-7.7); Basophil# 0.06 X10^3/uL; Basophil% 0.6 % (0-1); Eosinophil# 0.11 X10^3/uL; Eosinophils% 1.1 % (0-5); Hemoglobin 11.7 g/dL (12.0-15.0); Lymphocyte # 2.22 X10^3/ul (4.0); Lymphocyte % 23.1 % (19-41); Mean Corp Hgb Conc 31.6 g/dL (32-36); Mean Corpuscular Hgb 28.5 pg (27.0-32.0); Mean Platelet Vol. 9.2 fl (6.2-12.0); Monocyte# 0.43 X10^3/uL; Monocyte% 4.5 % (0-10); NRBC Flagged by Analyzer 0 % (0-5); Neutrophil # 6.78 X10^3/uL (2.7-7.7); Neutrophil % 70.4 % (47-70); Platelet Count 534 K/mm3 (150-450); RBC Distribution Width CV 12.7 % (11.6-14.6); Red Blood Count 4.11 M/mm3 (4.2-5.4); White Blood Count 9.6 K/mm3 (4.4-11.0)
--- NOTE | 2019-10-15 05:33 | ED.DCSUM_ITS ---
- ER Visit Summary Date of Service: 10/15/19 Chief Complaint: [Shortness of breath] History of Present Illness: The patient is a 24 F [presents to the ER with complaint of shortness of breath that started yesterday afternoon. Patient states that she recalls sitting on the edge of the bed and feeling short of breath. Patient states that gradually has worsened. She has a hard time laying flat because she feels more short of breath when she does that. She denies any chest pain although she does describe some pressure in her upper back between her shoulder blades. Patient tells me she had a 2 weeks ago. Patient also secondarily became septic with a uterine infection and urinary tract inf ection. She was discharged from the hospital about a week ago. Patient with history of migraines. Patient denies any recent fever or cough. She denies other illness. No history of PE or DVT.] Physical Examination: [HEENT-PERRLA, EOMI. Cranial nerves II through XII grossly intact. TMs clear. Mucous membranes moist. No adenopathy. Cardiovascular-regular rate and rhythm without murmur or ectopy Lungs-clear to auscultation, chest wall stable without crepitus or subcu emphysema Abdomen-normoactive bowel sounds, soft, nontender, no rebound or rigidity, no peritoneal signs. Extremities-intact ?4, normal range of motion, normal pulses, atraumatic] Test Results: [CBC with differential obtained showing a 9.6, hemoglobin 11.7, hematocrit 37, platelets 534. EKG obtained arrival shows sinus rhythm with a ventricular rate of 88 bpm with no acute ST segment changes. No evidence for pericarditis.] Chemistries unremarkable. LFTs were normal. Urinalysis showed 30+ protein however it was a contaminated specimen therefore cannot draw a conclusion about infection although she did have 1025 RBCs and patient is still having vaginal bleeding after . Patient also had 25-50 WBCs and rare bacteria. Troponin was less than 0.15. BNP was 10.7. CTA of the chest ordered was nondiagnostic given the timing and contrast and will not be able to be repeated within the next 24 hours given the dye load. Emergency Department Course and Treatment: [A VQ scan was ordered to evaluate further as patient's d-dimer was elevated 0.8] Treatment Plan: [Care of patient turned over the morning physician awaiting VQ scan and discussion with patient's SCIENCE ANALYST given the patient's elevated blood pressures in the department.] Disposition: [Pending] Impression: [Dyspnea Hypertension] This note was generated with [employer] dictation software. It may contain incorrect words, spelling, and punctuation that were not noted in review of the chart prior to signing <Que Champion - Last Filed: 10/15/19 06:46> - ER Visit Summary Date of Service: 10/15/19 Patient signed out to me pending VQ scan results as well as monitoring of her blood pressure. Blood pressure reading is currently 119/90. Last 4 readings have been under 140 systolic. On repeat examination patient is resting comfortably. Her O2 sat is 99% on room air. I spoke with Dr. Gayle and updated her on the patient's current test results and vital signs. She is comfortable the patient being discharged to home with close follow-up. Disposition: Discharge Impression: Dyspnea This note was generated with [employer] dictation software. It may contain incorrect words, spelling, and punctuation that were not noted in review of the chart prior to signing <Yelitza Ruiz - Last Filed: 10/15/19 08:02> ED Disposition <Que Champion - Last Filed: 10/15/19 06:46> <Yelitza Ruiz - Last Filed: 10/15/19 08:02> - Plan for ED Patient: Disposition: Home or Assisted Living Diagnosis: Dyspnea Instructions: ED Dyspnea Referrals: Charissa Gayle MD [STAFF PHYSICIAN] - 5-7 Days
[2019-10-15 05:40] LABS: AST(SGOT) 16 U/L (15-37); Alanine Aminotransfer ALT/SGPT 24 U/L (13-56); Albumin, Serum 3.2 g/dL (3.2-5.0); Alkaline Phosphatase 139 U/L (45-117); Anion Gap 3 (5-15); BUN 14 mg/dL (7-18); BUN/Creat Ratio 17.6 RATIO (10-20); Calcium,Total 9.2 mg/dL (8.5-10.1); Chloride 104 mmol/L (98-107); Creatinine, Serum 0.79 mg/dL (0.55-1.02); EST Glomerular Filtration Rate 95 mL/min (>60); Est Glom Filt Rate - Afr Amer 115 mL/min (>60); Estimated Creatinine Clearance 103.68 ml/min; Globulin 4.5 g/dL (2.2-4.2); Glucose 90 mg/dL (74-106); Potassium 3.9 mmol/L (3.5-5.1); Protein, Total 7.7 g/dL (6.4-8.2); Sodium Level 137 mmol/L (136-145)
[2019-10-15 05:47] LABS: BNP,B-Type NATRIURETIC PEPTIDE 10.7 pg/mL (0-100)
[2019-10-15 06:00] LABS: Mucous, Urine 0 SEEN /hpf (<or=2+)
[2019-10-15 06:01] LABS: Color, Urine Yellow (Yellow); Glucose, Dipstick Normal (Normal); Ketone-Dipstick Negative (Negative); Leukocyte Esterase-Dipstick 500 /ul (Negative); Nitrite-Dipstick Negative (Negative); Occult Blood-Urine 250 /ul (Negative); Protein-Dipstick 30 mg/dl (Negative); Specific Gravity, Urine 1.005 (1.002-1.030); Urine Bilirubin Dipstick Negative (Negative); Urine Clarity Clear (Clear); Urine Urobilinogen Normal (Normal)
[2019-10-15 06:11] LABS: Bacteria RARE /hpf (None Seen); Red Blood Cells-Urine 10-25 SEEN /hpf (0-5); Squamous Epithelial Cells - UA 10-25 SEEN /hpf (5-10); White Blood Cells 25-50 SEEN /hpf (0-5); Yeast-Urine RARE /hpf (None Seen)
[2019-10-15 06:14] VITALS: BP 144/80; PULSE 103; RESP 22; O2SAT 100
[2019-10-15 06:22] LABS: D-Dimer Quantitative (DVT/PE) 0.82 FEU/ug/m (0.27-0.49)
--- NOTE | 2019-10-15 06:24 | NM_ITS ---
CLINICAL: Female, 24 years old. 2 weeks ago -- Shortness of Breath NUCLEAR VENTILATION/PERFUSION - LUNG TECHNIQUE: The patient was administered 5 mCi of Tc MAA followed by a perfusion lung scan. The patient was administered 50 mCi of Tc DTPA aerosol followed by a ventilation lung scan. Comparison made to prior chest radiograph dated . COMPARISON STUDIES : NM - None. CR - Not available for review at this time. CT - MR - Not available for review at this time. FINDINGS: The pulmonary perfusion study demonstrates uniform perfusion throughout both lung guido. There are no demonstrated segmental or subsegmental perfusion defects The ventilation study demonstrates uniform ventilation throughout both lung guido. There are no segmental or subsegmental ventilation abnormalities. NM/Lung Scan Vent/Perf IMPRESSION: Normal 99m Tc MAA pulmonary perfusion Tc DTPA aerosol ventilation imaging survey, according to revised PIOPED interpretive criteria. Electronically Signed: Anthony Fisher MD at 7:53 EST Tel , Service support ,
[2019-10-15 07:49] VITALS: BP 119/90; O2SAT 97
== END 2019-10-15 08:12 | disposition home or self-care (01) ==
PROVIDERS: Emergency Provider Emergency Medicine
DX: R06.02 Shortness of breath (principal); I10 Essential (primary) hypertension
CPT/HCPCS: 71275; 78582; 80048; 80076; 81001; 83880; 84484; 85025; 85379; 93005; 99284; A9540; A9567; Q9967; A4216

== ENCOUNTER → 2019-12-08 10:41 | Outpatient (CLI) | payer BC, MEDICAID, SELFPAY ==
[2019-12-05 13:04] VITALS: BMI 38.7
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
== END ==
PROVIDERS: Referring Provider Physician Assistant; Visit Provider Physician Assistant
DX: S51.851A Open bite of right forearm, initial encounter (principal); W50.3XXA Accidental bite by another person, initial encounter
CPT/HCPCS: 93971

== ENCOUNTER 2019-12-12 14:34 | Emergency (ER) | payer BC, MEDICAID, SELFPAY ==
[2019-12-05 13:04] VITALS: BMI 38.7
[2019-12-12 14:35] VITALS: BP 157/108; PULSE 97; RESP 16; TEMP 36.8; O2SAT 98; BMI 40.9
--- NOTE | 2019-12-12 14:40 | EKG12_ITS ---
Test Reason : CP Blood Pressure : / mmHG Vent. Rate : 086 BPM Atrial Rate : 086 BPM P-R Int : 136 ms QRS Dur : 086 ms QT Int : 360 ms P-R-T Axes : 043 051 043 degrees QTc Int : 430 ms Normal sinus rhythm Normal ECG Confirmed by WLILIS GOMEZ, RONY ([id number]), editorial manager MARY ESCOBAR ([id number] on 12/14/2019 1:03:06 PM Referred By: BB Confirmed By:RONY PEDRO MD
[2019-12-12 15:11] VITALS: PULSE 97; RESP 18; O2SAT 98
[2019-12-12 15:14] VITALS: O2SAT 98
--- NOTE | 2019-12-12 15:15 | RAD_ITS ---
STUDY: X-RAY CHEST REASON FOR EXAM: Female, 24 years old. Chest pain TECHNIQUE: Frontal view of the chest COMPARISON: CT chest dated 10/15/2019 FINDINGS: The lungs are clear. There are no pleural effusions. There is no pneumothorax. The heart is normal in size. The visualized osseous structures are within normal limits. RAD/Chest 1 View (Portable) IMPRESSION: No acute thoracic pathology. Electronically Signed: Kenyon Campos, at 15:58 EDT Tel , Service support ,
[2019-12-12] MEDS: Aspirin 81 MG TAB.CHEW 324 MG PO (15:28)
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
[2019-12-12 16:00] LABS: Absolute Lymphocyte Count 1.59 X10^3/uL (0.83-4.51); Absolute Neutrophil Count 6.9 X10^3/uL (2.0-7.7); Basophil# 0.04 X10^3/uL; Basophil% 0.4 % (0-1); Eosinophil# 0.09 X10^3/uL; Hematocrit 38.7 % (37-47); Hemoglobin 12.3 g/dL (12.0-15.0); Lymphocyte # 1.59 X10^3/ul (4.0); Lymphocyte % 17.8 % (19-41); Mean Corp Hgb Conc 31.8 g/dL (32-36); Mean Corpuscular Hgb 26.5 pg (27.0-32.0); Mean Corpuscular Volume 83.4 fL (81-99); Mean Platelet Vol. 9.8 fl (6.2-12.0); Monocyte# 0.32 X10^3/uL; Monocyte% 3.6 % (0-10); NRBC Flagged by Analyzer 0 % (0-5); Neutrophil # 6.85 X10^3/uL (2.7-7.7); Neutrophil % 76.9 % (47-70); Platelet Count 364 K/mm3 (150-450); RBC Distribution Width CV 13.2 % (11.6-14.6); RBC Distribution Width SD 39.9 fl (35.1-43.9); Red Blood Count 4.64 M/mm3 (4.2-5.4); White Blood Count 8.9 K/mm3 (4.4-11.0)
[2019-12-12 16:10] LABS: D-Dimer Quantitative (DVT/PE) 0.35 FEU/ug/m (0.27-0.49)
[2019-12-12 16:16] LABS: Anion Gap 6 (5-15); BUN 14 mg/dL (7-18); BUN/Creat Ratio 18.4 RATIO (10-20); Calcium,Total 9.2 mg/dL (8.5-10.1); Chloride 105 mmol/L (98-107); Creatinine, Serum 0.76 mg/dL (0.55-1.02); EST Glomerular Filtration Rate 100 mL/min (>60); Est Glom Filt Rate - Afr Amer 121 mL/min (>60); Estimated Creatinine Clearance 107.77 ml/min; Glucose 96 mg/dL (74-106); Sodium Level 138 mmol/L (136-145)
[2019-12-12 17:31] VITALS: BP 137/92; PULSE 92; RESP 20; O2SAT 98
== END 2019-12-12 17:33 | disposition home or self-care (01) ==
PROVIDERS: Emergency Provider Emergency Medicine
DX: R07.9 Chest pain, unspecified (principal); E66.9 Obesity, unspecified; Z68.41 Body mass index [BMI] 40.0-44.9, adult
CPT/HCPCS: 71045; 80048; 84484; 85025; 85379; 93005; 99285; A4216

== ENCOUNTER → 2020-01-20 | Outpatient (CLI) | payer BC, MEDICAID, SELFPAY | END | disposition home or self-care (01) | PROVIDERS: Visit Provider Nurse Practitioner Adult Health | DX: R82.998 Other abnormal findings in urine (principal) | CPT/HCPCS: 87086; 87088 ==

== ENCOUNTER → 2020-07-10 16:33 | Outpatient (CLI) | payer BC, MEDICAID, SELFPAY ==
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
== END ==
PROVIDERS: PCP Family Medicine; Referring Provider Nurse Practitioner Adult Health; Visit Provider Nurse Practitioner Adult Health
DX: R10.31 Right lower quadrant pain (principal)
CPT/HCPCS: 74018

== ENCOUNTER → 2020-09-15 09:42 | Outpatient (CLI) | payer BC, MEDICAID, SELFPAY ==
[2020-09-15 12:05] LABS: Anion Gap 5 (5-15); BUN 12 mg/dL (7-18); BUN/Creat Ratio 16.7 RATIO (10-20); Calcium,Total 8.8 mg/dL (8.5-10.1); Chloride 102 mmol/L (98-107); Cholesterol 217 mg/dL (200); Creatinine, Serum 0.72 mg/dL (0.55-1.02); EST Glomerular Filtration Rate 106 mL/min (>60); Est Glom Filt Rate - Afr Amer 128 mL/min (>60); Glucose 85 mg/dL (74-106); High Density Lipoprotein 45 mg/dL; Potassium 4.1 mmol/L (3.5-5.1); Sodium Level 137 mmol/L (136-145); Triglycerides 136 mg/dL; Very Low Density Lipoprotein 27 mg/dL (5-40)
== END ==
PROVIDERS: PCP Family Medicine; Referring Provider Family Medicine; Visit Provider Family Medicine
DX: Z13.220 Encounter for screening for lipoid disorders (principal); Z13.1 Encounter for screening for diabetes mellitus
CPT/HCPCS: 36415; 80048; 80061

== ENCOUNTER → 2020-10-04 16:08 | Outpatient (CLI) | payer BC, MEDICAID, SELFPAY ==
[2020-10-04 18:34] LABS: D-Dimer Quantitative (DVT/PE) < 0.27 FEU/ug/m (0.27-0.49)
== END ==
PROVIDERS: PCP Family Medicine; Referring Provider Family Medicine; Visit Provider Family Medicine
DX: R07.9 Chest pain, unspecified (principal)
CPT/HCPCS: 36415; 85379

== ENCOUNTER → 2020-10-05 11:04 | Outpatient (CLI) | payer BC, MEDICAID, SELFPAY ==
--- NOTE | 2020-10-05 11:06 | RAD_ITS ---
STUDY: X-RAY CHEST REASON FOR EXAM: Female, 25 years old. CHEST PAINS ACROSS UPPER CHEST. TECHNIQUE: PA and lateral views of the chest. COMPARISON: None. FINDINGS: The lungs are clear and expanded. There is no demonstrated pleural abnormality. Normal size heart. Normal mediastinum and roxy. Normal visualized pulmonary arteries. Normal visualized aortic arch and descending thoracic aorta. Normal visualized thoracic spine. Normal visualized ribs, clavicles, and shoulders. There is no demonstrated abnormality of the visualized soft tissue structures of the upper abdomen. RAD/Chest PA and Lateral IMPRESSION: Normal x-ray examination of the chest. Electronically Signed: Yogesh Vallejo MD at 11:23 EST , Service support ,
[2020-10-05 12:23] LABS: Absolute Lymphocyte Count 2.37 X10^3/uL (0.83-4.51); Basophil# 0.05 X10^3/uL; Basophil% 0.6 % (0-1); Eosinophil# 0.13 X10^3/uL; Eosinophils% 1.6 % (0-5); Hematocrit 40.8 % (37-47); Hemoglobin 12.7 g/dL (12.0-15.0); Lymphocyte # 2.37 X10^3/ul (4.0); Lymphocyte % 29.6 % (19-41); Mean Corp Hgb Conc 31.1 g/dL (32-36); Mean Corpuscular Hgb 27.1 pg (27.0-32.0); Monocyte# 0.41 X10^3/uL; Monocyte% 5.1 % (0-10); NRBC Flagged by Analyzer 0 % (0-5); Neutrophil # 5.02 X10^3/uL (2.7-7.7); Neutrophil % 62.8 % (47-70); Platelet Count 348 K/mm3 (150-450); RBC Distribution Width CV 12.9 % (11.6-14.6); RBC Distribution Width SD 40.6 fl (35.1-43.9); Red Blood Count 4.69 M/mm3 (4.2-5.4)
[2020-10-05 13:24] LABS: Anion Gap 5 (5-15); BUN 11 mg/dL (7-18); BUN/Creat Ratio 17.4 RATIO (10-20); Calcium,Total 8.8 mg/dL (8.5-10.1); Chloride 106 mmol/L (98-107); Creatinine, Serum 0.63 mg/dL (0.55-1.02); EST Glomerular Filtration Rate 123 mL/min (>60); Est Glom Filt Rate - Afr Amer 149 mL/min (>60); Glucose 83 mg/dL (74-106); Potassium 3.8 mmol/L (3.5-5.1); Sodium Level 139 mmol/L (136-145)
== END ==
PROVIDERS: PCP Family Medicine; Referring Provider Family Medicine; Visit Provider Family Medicine
DX: R07.9 Chest pain, unspecified (principal)
CPT/HCPCS: 36415; 71046; 80048; 85025

== ENCOUNTER → 2020-12-26 13:04 | Outpatient (CLI) | payer BC, MEDICAID, SELFPAY ==
--- NOTE | 2020-12-26 13:09 | VDLE_ITS ---
Reason For Study: Leg pain Procedure LEFT This is a venous duplex using B-mode, color GSV is normal. flow and spectral Doppler. CFV is compressible, spontaneous, phasic, Exam performed in department. competent, and demonstrates normal A preliminary report was called and/or faxed augmentation. to [facility]. FV is compressible, spontaneous, phasic, competent and demonstrates normal augmentation. POP V is compressible, spontaneous, phasic, competent and demonstrates normal augmentation. T/P Trunk is compressible. PTV is compressible. LT PerV is compressible. VL/Venous Duplex US, Unilateral Interpretation Summary Deep veins of the left lower extremity are patent and compressible segmentally. There is no evidence of left lower extremity deep vein thrombosis. Valvular competence appears intac t within the proximal deep venous system on the left . The left great saphenous vein appears patent a nd compressible segmentally. Ordering Physician: Aditi Dallas Referring Physician: James Melton Performed By: Radha Lopez RVT
== END ==
PROVIDERS: PCP Family Medicine; Referring Provider Family Medicine; Visit Provider Family Medicine
DX: M79.605 Pain in left leg (principal)
CPT/HCPCS: 93971

== ENCOUNTER → 2021-04-06 10:13 | Outpatient (CLI) | payer BC, MEDICAID, SELFPAY ==
[2021-04-06 12:02] LABS: Absolute Lymphocyte Count 3.06 X10^3/uL (0.83-4.51); Absolute Neutrophil Count 4.7 X10^3/uL (2.0-7.7); Basophil# 0.05 X10^3/uL; Basophil% 0.6 % (0-1); Eosinophil# 0.19 X10^3/uL; Eosinophils% 2.3 % (0-5); Hematocrit 41.5 % (37-47); Hemoglobin 13.2 g/dL (12.0-15.0); Lymphocyte # 3.06 X10^3/ul (0.83-4.51); Lymphocyte % 36.6 % (19-41); Mean Corp Hgb Conc 31.8 g/dL (32-36); Mean Corpuscular Hgb 27.8 pg (27.0-32.0); Mean Corpuscular Volume 87.6 fL (81-99); Mean Platelet Vol. 9.7 fl (6.2-12.0); Monocyte# 0.37 X10^3/uL; Monocyte% 4.4 % (0-10); NRBC Flagged by Analyzer 0 % (0-5); Neutrophil # 4.67 X10^3/uL (2.7-7.7); Neutrophil % 55.9 % (47-70); Platelet Count 386 K/mm3 (150-450); RBC Distribution Width CV 12.9 % (11.6-14.6); RBC Distribution Width SD 41.5 fl (35.1-43.9); Red Blood Count 4.74 M/mm3 (4.2-5.4); White Blood Count 8.4 K/mm3 (4.4-11.0)
[2021-04-06 12:20] LABS: ALB/GLOB Ratio 0.9 RATIO (0.9-2.4); AST(SGOT) 14 U/L (15-37); Alanine Aminotransfer ALT/SGPT 21 U/L (13-56); Albumin, Serum 3.3 g/dL (3.2-5.0); Alkaline Phosphatase 69 U/L (45-117); Anion Gap 3 (5-15); BUN 8 mg/dL (7-18); BUN/Creat Ratio 13.5 RATIO (10-20); Calcium,Total 8.7 mg/dL (8.5-10.1); Chloride 108 mmol/L (98-107); Creatinine, Serum 0.59 mg/dL (0.55-1.02); EST Glomerular Filtration Rate 132 mL/min (>60); Est Glom Filt Rate - Afr Amer 160 mL/min (>60); Globulin 3.8 g/dL (2.2-4.2); Glucose 90 mg/dL (74-106); Lipase 74 U/L (73-393); Protein, Total 7.1 g/dL (6.4-8.2); Sodium Level 138 mmol/L (136-145)
== END ==
PROVIDERS: PCP Family Medicine; Referring Provider Family Medicine; Visit Provider Family Medicine
DX: R10.13 Epigastric pain (principal)
CPT/HCPCS: 36415; 80053; 83690; 85025

== ENCOUNTER → 2021-04-16 10:24 | Outpatient (CLI) | payer BC, MEDICAID, SELFPAY ==
--- NOTE | 2021-04-16 10:28 | US_ITS ---
STUDY: ABDOMINAL ULTRASOUND REASON FOR EXAM: Female, 25 years old. 5 week history of epigastric and abdominal pain. TECHNIQUE: Transabdominal ultrasound was performed with real-time and static cano scale imaging. TECHNICAL QUALITY: Limited. Examination limited due to obesity. COMPARISON: None. FINDINGS: Liver: The liver measures 16.8 cm. There is increased echogenicity consistent with fatty infiltration. The bile ducts are within normal limits. There is hepatic color flow. The direction of portal flow is hepatopetal. There is no demonstrated mass lesion. Portal vein measurement: Gallbladder: Normal distended gallbladder. The gallbladder wall measures 1.3 mm. There is a negative sonographic Le''s sign. There is no pericholecystic fluid. There are no gallstones. Common Bile Duct (C.B.D.): The common bile duct measures 3.4 mm. Pancreas: Normal size of the head, body and tail of the pancreas. There is normal echogenicity of the pancreas. There is no demonstrated pancreatic mass or cyst. Spleen: Normal size of the spleen. The spleen measures 10.6 cm x 11.4 cm x 5.5 cm. Right Kidney: Normal size of the right kidney. The right kidney measures 11.7 cm x 6.1 cm x 4.1 cm. Normal renal cortex. The right cortex measures 1 cm. There is no demonstrated renal mass or cyst. There is no right hydronephrosis. Left Kidney: Normal size of the left kidney. The left kidney measures 11.8 cm x 5 cm x 5.4 cm. Normal renal cortex. The left cortex measures 1 cm. There is no demonstrated renal mass or cyst. There is no left hydronephrosis. Aorta: Unremarkable I.V.C.: The IVC is patent. There is no ascites. US/Abdomen Complete IMPRESSION: Fatty infiltration of the liver. Electronically Signed: Yogesh Vallejo MD at 15:03 EDT , Service support ,
== END ==
PROVIDERS: PCP Family Medicine; Referring Provider Family Medicine; Visit Provider Family Medicine
DX: K76.0 Fatty (change of) liver, not elsewhere classified (principal); R10.13 Epigastric pain
CPT/HCPCS: 76700

== ENCOUNTER 2021-10-03 17:39 | Emergency (ER) | payer BC, MEDICAID, SELFPAY ==
[2021-10-03 17:40] VITALS: BP 155/92; PULSE 97; RESP 15; TEMP 35.5; O2SAT 100; BMI 45.1
--- NOTE | 2021-10-03 17:49 | RAD_ITS ---
STUDY: X-RAY CHEST REASON FOR EXAM: Female, 26 years old. CHEST PAIN cough TECHNIQUE: XR Chest 1 View COMPARISON: 10.05.20 FINDINGS: There is no demonstrated pleural abnormality. Normal size heart. Normal mediastinum and roxy. Normal visualized pulmonary arteries. Normal visualized aortic arch and descending thoracic aorta. Normal visualized thoracic spine. Normal visualized ribs, clavicles, and shoulders. There is no demonstrated abnormality of the visualized soft tissue structures of the upper abdomen. RAD/Chest 1 View (Portable) IMPRESSION: There are no acute findings. Electronically Signed: Bo Jean MD at 18:16 EST ,
--- NOTE | 2021-10-03 18:11 | EKG12_ITS ---
Test Reason : DYSRHYTHMIA Blood Pressure : / mmHG Vent. Rate : 091 BPM Atrial Rate : 091 BPM P-R Int : 158 ms QRS Dur : 086 ms QT Int : 352 ms P-R-T Axes : 033 046 020 degrees QTc Int : 432 ms Normal sinus rhythm Normal ECG Confirmed by DE GOMEZ, JADIEL ([id number]), legal editor KENDRA MENDOZA ([id number]) on 10/05/2021 1:07:56 PM Referred By: ROSALBA Confirmed By:VIKKI KC MD
--- NOTE | 2021-10-03 18:23 | EX.ED.VIS.UR ---
HPI HPI - URI History of Present Illness Chief Complaint: Chest Other Detail of Chief Complaint: Cough for weeks. Onset/Context/Timing Onset: Weeks Context: Gradual Onset Timing: Intermittent Current Severity: Mild Maximum Severity: Mild Associated Symptoms Associated Symptoms: Positive for Nausea, Vomiting and Nonproductive cough Narrative Narrative: 26-year-old female no sniffing past medical history. States she has had a cough since September 08. Yesterday start of nausea and vomiting. She denies any fever or chills. No dysuria. No hemoptysis. Her fianc? has had symptoms for 3 days and tested +2 days ago for Covid. She denies any diarrhea. No history of DVT or PE. No risk factors. Prior similar symptoms: Yes Recent Illness/Hospitalization: No ROS ROS ED ROS Narrative Cough. Nausea and vomiting. Review of Systems ROS Unobtainable: Denies due to encephalopathy Constitutional Constitutional ED: Denies chills or fever(s) Eyes Eyes: Denies change in vision ENT ENT ED: Denies ear pain Cardiovascular Cardiovascular: Denies chest pain or palpitations Respiratory/Chest Respiratory/Chest: Reports cough; Denies dyspnea Gastrointestinal Gastrointestinal: Reports nausea and vomiting; Denies abdominal pain or diarrhea Genitourinary Genitourinary ED: Denies dysuria Musculoskeletal Musculoskeletal: Denies myalgias Integumentary Denies rash Neurologic Neurologic: Denies headache(s) Psychiatric Psychiatric: Denies depression Endocrine Endocrinology: Denies polyuria Hematologic/Lymphatic Hematologic/Lymphatic: Denies easy bruising Allergic/Immunologic Allergic/Immunologic ED: Denies urticaria PFSH PFSH Medical History Hx of sepsis Home Medications NK 10/03/21 [History Last Taken Unknown] Allergy/AdvReac Type Severity Reaction Status Date / Time No Known Allergies Allergy Verified 10/03/21 17:42 Family History Other Breast cancer Diabetes Heart disease Hypertension Surgical History Hx of section Social History Smoking Status: Never smoker alcohol intake: never EXAM Physical Exam Narrative Exam Narrative: Evaluate fever no acute distress vital signs stable afebrile. Pulse ox 100% on room air no hypoxia. HEENT exam unremarkable. Moist with memories. Neck nontender. No JVD. No lymphadenopathy. Lungs clear to auscultation bilaterally. Heart regular rhythm rate about 90 no murmur. Abdomen soft nontender normal bowel sounds no peritoneal signs. Moving all 4 extremities. Calves are nontender without edema or cords. Neurologically she is awake and alert. Const Vital Signs: 10/03/21 17:40 10/03/21 17:54 Temperature 96 F L Temperature Source Temporal Pulse Rate 97 Respiratory Rate 15 Respiratory Effort Normal Non-Labored Respiratory Pattern Normal Blood Pressure 155/92 H Blood Pressure Mean 113 Pulse Ox 100 Oxygen Delivery Method Room Air Positive well nourished, well developed and obese; Negative for cachectic or contractures General Appearance ED: well developed and NAD; Negative for cachectic, contractures, cyanotic, diaphoretic or pallor Nutritional Appearance: obese; Negative for cachectic HEENT Reports moist mucous membranes normocephalic and atraumatic External Ear: external ears normal Throat: Negative for posterior oropharynx abnormal Eyes PERRL and EOMs intact bilaterally General Eye ED: Negative for pale conjunctiva or scleral icterus Neck no lymphadenopathy, supple, no meningeal signs and no JVD General: Negative for anterior neck swelling or lymphadenopathy Resp normal respiratory effort and clear to auscultation bilaterally Auscultation: Negative for rales, rhonchi or wheezes Cardio S1 normal heart sound, S2 normal heart sound and no murmurs Rate: regular rate Rhythm: regular rhythm GI non-tender, non-distended and no masses Inspection: Negative for abdominal distention Auscultation: normoactive bowel sounds Palpation: soft; Negative for tender or guarding Back/Spine no CVA tenderness and normal ROM General Back: Negative for CVA tenderness Cervical Spine: Negative for cervical spine tenderness Thoracic Spine / Upper Back: Negative for thoracic spinal tenderness Extremity normal to inspection and full ROM General Extremety ED: Negative for cyanosis or tenderness General Extremity: Negative for cyanosis Neuro oriented x3 Sensorium / Orientation: alert, oriented to person, oriented to place and oriented to time; Negative for orientation impaired, lethargic or stuporous Motor Exam: strength 5/5 throughout; Negative for general weakness Psych mental status grossly normal Attitude: No agitated Mood & Affect: Negative for depressed or tearful Skin General Skin Exam: Negative for jaundice or pallor Lesions: no lesions Rashes: no rashes MDM MDM MDM Narrative Medical decision making narrative: 26-year-old female with URI symptoms. Chest x-ray negative. EKG unremarkable. Covid pending. Repeat exam unchanged doing well at 6:45 PM. She will be discharged home. Lab Data Attestation: I reviewed the patient's lab results. Lab results narrative: Rapid Covid antigen test is positive. Radiography Diagnostic Testing: Clinical Impression(s) from Imaging Studies Chest X-Ray 10/03/21 17:49 IMPRESSION: There are no acute findings. Electronically Signed: Bo Jean MD at 18:16 EST , Chest x-ray, portable, single view interpreted by myself and the radiologist shows no acute abnormality. No infiltrate. Normal cardiac silhouette. Rhythm Strip Rhythm Strip: Sinus Rhythm Rate: 91 Ectopy: None EKG Initial EKG: Attestation: I personally reviewed and interpreted this EKG as follows: Interpretation: Sinus Rhythm and No Acute Injury Pattern Comments: Normal sinus rhythm rate of 91 no acute signs of NV nor ischemia. Prior EKG tracings: not available for review Discharge Plan Triage Chief Complaint: Chest Other ED Provider: Boo Machuca Dx/Rx/DC Orders Clinical Impression: COVID-19 Instructions: Human Coronaviruses Prescriptions: No Action NK RF: 0 Primary Care Provider: James Melton Referrals: James Melton MD [Primary Care Provider] - 10-14 Days if not better Activity Restrictions/Additional Instructions: Plenty of fluids and rest. Motrin and Tylenol for body aches and fever. Return if feeling a lot worse. Disposition Disposition: Home, Self Care
== END 2021-10-03 18:51 | disposition home or self-care (01) ==
PROVIDERS: Emergency Provider Emergency Medicine; PCP Family Medicine; Visit Provider Emergency Medicine
DX: U07.1 COVID-19 (principal); Z68.42 Body mass index [BMI] 45.0-49.9, adult; E66.9 Obesity, unspecified
CPT/HCPCS: 71045; 87426; 93005; 99282

== ENCOUNTER 2022-08-07 09:23 | Emergency (ER) | payer BC, MEDICAID, SELFPAY ==
[2022-08-07 09:24] VITALS: BP 150/106; PULSE 98; RESP 16; TEMP 35.5; O2SAT 98; BMI 42.7
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
== END 2022-08-07 10:27 | disposition home or self-care (01) ==
LOC: ED 09:57
PROVIDERS: Emergency Provider Emergency Medicine; PCP Family Medicine; Visit Provider Emergency Medicine
DX: S16.1XXA Strain of muscle, fascia and tendon at neck level, initial encounter (principal); Y92.410 Unspecified street and highway as the place of occurrence of the external cause; V49.40XA Driver injured in collision with unspecified motor vehicles in traffic accident, initial encounter; S29.019A Strain of muscle and tendon of unspecified wall of thorax, initial encounter
CPT/HCPCS: 99282

== ENCOUNTER 2023-08-21 22:52 | Emergency (ER) | payer OTHER, SELFPAY ==
[2023-08-21 22:55] VITALS: BP 164/95; PULSE 92; RESP 16; TEMP 36.6; O2SAT 99; BMI 47.1
--- NOTE | 2023-08-21 23:08 | EDS_ITS ---
HPI History of Present Illness Chief Complaint: Headache Informant: patient and spouse/S.O. Narrative Narrative: Nontraumatic right frontal headache while at work 10 AM. Photophobia. Took ibuprofen at 1 and repeated early this evening. No relief. Nausea vomiting x 3 no hematemesis. No increasing stress no fever. History of migraines last flare requiring ED visit years ago when she was . Denies any allergies. Prior similar symptoms: Yes PFSH PFSH Medical History Hx of sepsis Puncture wound of left upper arm Home Medications NK 10/03/21 [History Last Taken Unknown] Adacel(Tdap Adolesn/Adult)(PF) 2Lf-(2.5-5-3-5mcg)-5 Lf/0.5 mL IM susp (diph, pertuss(acel),tet vac(PF)) 0.5 ml IM ONCE PRN tetanus #0.5 mL 09/18/22 [Clinic Last Taken Unknown] Allergy/AdvReac Type Severity Reaction Status Date / Time No Known Allergies Allergy Verified 08/21/23 22:53 Family History Other Breast cancer Diabetes Heart disease Hypertension Surgical History Hx of section Social History Smoking Status: Never smoker alcohol intake: never ROS ROS ED Constitutional Constitutional ED: Denies chills, fever(s) or sweats Eyes Eyes: Denies change in vision ENT ENT ED: Denies dysphagia or sore throat Cardiovascular Cardiovascular: Denies chest pain, leg edema, palpitations or racing heartbeat Respiratory/Chest Respiratory/Chest: Denies cough, dyspnea or dyspnea on exertion Gastrointestinal Gastrointestinal: Reports nausea and vomiting; Denies abdominal pain or diarrhea Genitourinary Genitourinary ED: Denies dysuria, hematuria or urinary frequency Musculoskeletal Musculoskeletal: Denies back pain, extremity pain or neck pain Integumentary Denies rash or wounds Neurologic Neurologic: Reports headache(s); Denies paresthesias or weakness EXAM Physical Exam Const Vital Signs: 08/21/23 22:55 Temperature 97.8 F Temperature Source Temporal Pulse Rate 92 Respiratory Rate 16 Blood Pressure 164/95 H Blood Pressure Mean 118 Pulse Ox 99 Positive well nourished and well developed General Appearance ED: well developed and NAD HEENT Reports moist mucous membranes normocephalic and atraumatic Eyes PERRL, EOMs intact bilaterally and conjunctivae normal General Eye ED: Yes normal appearance of both eyes Neck no lymphadenopathy, supple and no meningeal signs General: Negative for tenderness Chest Wall Chest: Negative for tenderness Resp normal respiratory effort and normal air movement Effort and Inspection: symmetric chest movement; Negative for respiratory distress Cardio regular rate, regular rhythm and no murmurs Peripheral Pulses: pulses 2+ throughout GI normal to inspection, nondistended, normoactive bowel sounds and non-tender Palpation: Negative for guarding or rebound tenderness present Back/Spine no CVA tenderness and no thoracic nor lumbar tenderness Extremity normal to inspection General Extremety ED: Negative for edema or tenderness General Extremity: Negative for edema Neuro oriented x3, CN's II-XII intact bilaterally and no sensory deficits noted Sensorium / Orientation: awake and alert Skin no rashes or lesions noted and no wounds MDM MDM MDM Narrative Medical decision making narrative: Interventions / MDM: Differential diagnosis: Migraine headache Diagnosis considered but do not suspect: No clinical meningitis My EKG interpretation: N/A Imaging independently reviewed and interpreted by myself: N/A External documents reviewed: N/A Test considered but not ordered:N/A ED course: Nontoxic no focal deficits no meningismus. Similar migraines in the past with vomiting, IV was established for fluids. Reglan and Benadryl ordered for symptom control. Reevaluation, symptoms improved. Patient discharged outpatient follow-up. Re-evaluation: stable Disposition discussed with patient/family/significant other: Patient and significant other Case discussed with consulting clinician: N/A This note was generated with [employer] dictation software. It may contain incorrect words, spelling, and punctuation that were not noted in checking the note before signing. Discharge Plan Triage Chief Complaint: Headache ED Provider: Darwin Stock Dx/Rx/DC Orders Clinical Impression: Migraine headache, Nausea & vomiting Instructions: ED, Migraine (Classical) Prescriptions: No Action diph,pertuss(acel),tet vac(PF) [Adacel(Tdap Adolesn/Adult)(PF)] 2 Lf-(2.5-5-3-5 mcg)-5Lf/0.5 mL suspension 0.5 ml IM ONCE PRN (Reason: tetanus) Qty: 0.5 0RF NK Stand Alone Forms: ED Work / School Excuse Primary Care Provider: James Melton Referrals: James Melton MD [Primary Care Provider] - 1-2 Weeks Disposition Disposition: Home, Self Care Discharge Date/Time: 08/22/23 00:39
[2023-08-21] MEDS: Metoclopramide 10 MG/2 ML Vial IV (23:23)
[2023-08-21] MEDS: 0.9% Normal Saline (1000mL) 1,000 ML 999 ML IV (23:23)
[2023-08-21] MEDS: DiphenhydrAMINE 50 MG/ML Syringe 25 MG IV (23:23)
== END 2023-08-22 00:39 | disposition home or self-care (01) ==
PROVIDERS: Emergency Provider Emergency Medicine; PCP Family Medicine; Visit Provider Emergency Medicine
DX: G43.909 Migraine, unspecified, not intractable, without status migrainosus (principal); R11.2 Nausea with vomiting, unspecified
CPT/HCPCS: 96361; 96374; 96375; 99283; J7030; A4216

== ENCOUNTER 2024-10-07 07:21 | Emergency (ER) | payer BC, SELFPAY ==
[2024-10-07 07:21] VITALS: BP 132/94; PULSE 89; RESP 16; TEMP 36.7; O2SAT 100; BMI 29.8
--- NOTE | 2024-10-07 07:48 | EDS_ITS ---
HPI History of Present Illness Chief Complaint: Headache Informant: patient Onset/Context/Timing Onset: Today and Hours Timing: Continuous Quality -Headache: Positive for Similar Prior Headaches Current Severity: Moderate Maximum Severity: Moderate Associated Symptoms/Injury Associated Symptoms: Positive for Nausea and Vomiting; Negative for Fever, Sore Throat, Sinus Pressure, Numbness, Tingling, Preceding Aura, Visual Changes, Blurred Vision, Photophobia or Visual Loss Injury - PULLIAM: Negative for Direct Trauma, Fall or Assault Narrative Narrative: 29-year-old female history of migraine headaches. No prior intracranial bleed or aneurysm. Said around 3 AM this morning she awoke with her typical migraine headache bifrontal forehead headache behind her eyes. Associated photophobia. Nausea and vomiting. No diarrhea. No fever. No sinus congestion. No recent falls or trauma. She is on no blood thinners. Denies any trouble using her arms or legs. No family history of intracranial bleeds. Prior similar symptoms: Yes Recent Illness/Hospitalization: No PFSH PFSH Medical History Puncture wound of left upper arm Hx of sepsis Home Medications ?Medication ?Instructions ?Recorded ?Last Taken ?Type NK 10/03/21 Unknown History Adacel(Tdap Adolesn/Adult)(PF) 0.5 ml IM ONCE PRN teta nus #0.5 mL 09/18/22 Unknown Clinic 2Lf-(2.5-5-3-5mcg)-5 Lf/0.5 mL IM susp (diph,pertuss(acel),tet vac(PF)) Allergy/AdvReac Type Severity Reaction Status Date / Time No Known Allergies Allergy Verified 10/07/24 07:23 Family History Other Breast cancer Diabetes Heart disease Hypertension Surgical History Hx of section Social History Smoking Status: Never smoker alcohol intake: never ROS ROS ED ROS Narrative Headache. Nausea vomiting. Constitutional Constitutional ED: Denies chills or fever(s) Eyes Eyes: Denies blurry vision ENT ENT ED: Denies ear pain Cardiovascular Cardiovascular: Denies chest pain Respiratory/Chest Respiratory/Chest: Denies cough or dyspnea Gastrointestinal Gastrointestinal: Reports nausea and vomiting; Denies abdominal pain, constipation, diarrhea or melena Genitourinary Genitourinary ED: Denies dysuria or hematuria Musculoskeletal Musculoskeletal: Denies arthralgias or back pain Integumentary Denies abscess Neurologic Neurologic: Reports headache(s); Denies paresthesias or weakness Psychiatric Psychiatric: Denies anxiety or depression Endocrine Endocrinology: Denies polydipsia Hematologic/Lymphatic Hematologic/Lymphatic: Denies easy bleeding Allergic/Immunologic Allergic/Immunologic ED: Denies mouth swelling EXAM Physical Exam Narrative Exam Narrative: 29-year-old female sitting upright in bed. Vital signs are stable afebrile. H EENT exam pupils round reactive light. She is photophobic. No facial droop. Normal speech. No face trauma or tenderness. No sinus tenderness. No hematomas to her scalp. Neck nontender no meningismus. Back nontender. Lungs clear to auscultation bilaterally. Heart regular rhythm rate about 90 no murmur. Chest wall ribs nontender. Abdomen soft nontender. Moving all 4 extremities. 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 Dorsi plantarflexion intact. Normal range of motion. Neurologically she is awake and alert. No focal motor deficits. NIH of 0. Fingertip to nose and [id number] within normal limits. No drift. Answering questions and following commands. Const Vital Signs: 10/07/24 07:21 10/07/24 09:21 Temperature 98.1 F Temperature Source Temporal Pulse Rate 89 72 Respiratory Rate 16 Blood Pressure 132/94 H 100/70 Blood Pressure Mean 106 80 Pulse Ox 100 98 Oxygen Delivery Method Room Air Room Air Positive well nourished and well developed; Negative for cachectic, contractures or unkempt General Appearance ED: well developed and NAD; Negative for unkempt, cachectic, contractures, cyanotic or diaphoretic Nutritional Appearance: Negative for cachectic HEENT Reports normocephalic and moist mucous membranes atraumatic; Negative for trauma, tenderness, temporal artery tenderness or vesicular rash Eyes PERRL and EOMs intact bilaterally Neck no lymphadenopathy, supple, no meningeal signs and no JVD Resp normal respiratory effort and clear to auscultation bilaterally Cardio regular rate, regular rhythm, S1 normal heart sound, S2 normal heart sound and no murmurs GI non-tender and non-distended Palpation: soft; Negative for firm, tender or mass Back/Spine no CVA tenderness Extremity normal to inspection and full ROM General Extremety ED: Negative for edema or tenderness General Extremity: Negative for edema Neuro oriented x3 and CN's II-XII intact bilaterally Sensorium / Orientation: awake, alert, oriented to person, oriented to place and oriented to time; Negative for orientation impaired or lethargic Coordination / Balance: [id number] test normal and [id number] test normal Speech: speech normal Motor Exam: strength 5/5 throughout Psych mental status grossly normal Appearance: Negative for unkempt Attitude: No agitated Mood & Affect: Negative for depressed, anxious or tearful Skin Lesions: no lesions Rashes: no rashes MDM MDM MDM Narrative Medical decision making narrative: 29-year-old female history of migraine headaches. Has a benign exam. Normal neurologic exam. Prior imaging when she was younger. I do not think she needs imaging today. Should be treated with IV fluids, Toradol, Reglan and Benadryl and reassessed. Repeat exam at 10:15 AM patient feels and looks much better. Said her headache is resolved. Her repeat neurologic exam remains normal. She is able to touch her chin to chest. Normal speech. No facial droop. Fingertip to nose and rapid hand movements are normal. Normal dorsi plantarflexion. Should be d ischarged to home. Fluids and rest. She has Imitrex at home. History & Record Review Discussion w/independent historian: Patient and Significant other Discharge Plan Triage Chief Complaint: Headache ED Provider: Boo Machuca Dx/Rx/DC Orders Clinical Impression: Headache, migraine Instructions: ED, Migraine (Classical) Prescriptions: No Action diph,pertuss(acel),tet vac(PF) [Adacel(Tdap Adolesn/Adult)(PF)] 2 Lf-(2.5-5-3-5 mcg)-5Lf/0.5 mL suspension 0.5 ml IM ONCE PRN (Reason: tetanus) Qty: 0.5 0RF NK Primary Care Provider: Marlen Viramontes Referrals: James Melton MD [Non-Staff] - 1-2 Days if not improving Activity Restrictions/Additional Instructions: Plenty of fluids and rest. Alternate Tylenol Motrin as needed. Follow-up with your doctor if not improving or return if feeling worse. Print Language: Austrian Disposition Disposition: Home, Self Care
[2024-10-07] MEDS: 0.9% Normal Saline (1000mL) 1,000 ML 1000 ML IV (08:11)
[2024-10-07] MEDS: Metoclopramide 10 MG/2 ML Vial IV (08:12)
[2024-10-07] MEDS: Ketorolac 30 MG/ML Syringe IV (08:13)
[2024-10-07] MEDS: DiphenhydrAMINE 50 MG/ML Syringe IV (08:15)
[2024-10-07 09:21] VITALS: BP 100/70; PULSE 72; O2SAT 98
[2024-10-07 10:25] VITALS: BP 94/77; PULSE 77; RESP 14; TEMP 36.3; O2SAT 100
== END 2024-10-07 10:38 | disposition home or self-care (01) ==
LOC: ED 07:57
PROVIDERS: Emergency Provider Emergency Medicine; PCP Nurse Practitioner Family; Visit Provider Emergency Medicine
DX: G43.909 Migraine, unspecified, not intractable, without status migrainosus (principal)
CPT/HCPCS: 96361; 96374; 96375; 96376; 99283; A4216

== ENCOUNTER 2024-11-30 15:17 | Outpatient (RCR) | payer BC, SELFPAY | END 2024-12-06 23:59 | LOC: NS 15:17 | PROVIDERS: PCP Nurse Practitioner Family; Visit Provider Obstetrics & Gynecology | DX: Z71.3 Dietary counseling and surveillance (principal); E28.2 Polycystic ovarian syndrome; E88.819 Insulin resistance, unspecified; E16.1 Other hypoglycemia; E66.813 Obesity, class 3; Z68.42 Body mass index [BMI] 45.0-49.9, adult | CPT/HCPCS: 97802 ==